=== PATIENT | male | born 1955 | race African-American/Black ===

== ENCOUNTER → 2018-10-23 08:37 | Outpatient (CLI) | payer MEDICAID, SELFPAY | PROVIDERS: PCP Family Medicine; Visit Provider Family Medicine | DX: I10 Essential (primary) hypertension (principal); E78.5 Hyperlipidemia, unspecified; E11.65 Type 2 diabetes mellitus with hyperglycemia; Z82.49 Family history of ischemic heart disease and other diseases of the circulatory system | CPT/HCPCS: 93017 ==

== ENCOUNTER → 2018-10-27 12:52 | Outpatient (CLI) | payer MEDICAID, SELFPAY | PROVIDERS: PCP Family Medicine; Visit Provider Family Medicine | DX: G47.30 Sleep apnea, unspecified (principal); G47.10 Hypersomnia, unspecified; I10 Essential (primary) hypertension; E66.9 Obesity, unspecified | CPT/HCPCS: 95806 ==

== ENCOUNTER 2018-12-02 03:56 | Observation (INO) ==
[2018-12-02 04:25] LABS: Basophils # 0.1 K/mm3 (0-0.2); Basophils % 0.4 % (0.1-2.0); Eosinophils # 0.1 K/mm3 (0.0-0.4); Eosinophils % 0.9 % (0.1-12.0); Hematocrit 24.7 % (42.0-52.0); Hemoglobin 8.3 g/dL (14.1-18.0); Lymphocytes # 1.9 K/mm3 (0.7-4.5); Lymphocytes % 18.5 % (10-50); Mean Corpuscular HGB Conc 33.9 g/dL (31.8-35.4); Mean Corpuscular Hemoglobin 34.2 pg (27.0-31.2); Mean Corpuscular Volume 100.9 fl (80-94); Monocytes # 0.5 K/mm3 (0.1-1.0); Monocytes % 4.9 % (1.7-9.3); Neutrophils # 7.8 K/mm3 (1.8-7.8); Neutrophils % 75.2 % (37.0-80.0); Platelet Count 430 K/mm3 (142-424); Red Blood Count 2.44 M/mm3 (4.60-6.20); Red Cell Distribution Width 13.3 % (11.5-17.5); White Blood Count 10.3 K/mm3 (4.8-10.8)
[2018-12-02 04:35] LABS: Alanine Aminotransferase 27 U/L (12-78); Albumin Level 3.6 gm/dL (3.4-5.0); Albumin/Globulin Ratio 0.7 (1.1-1.8); Alkaline Phosphatase 66 U/L (46-116); Anion Gap 17.7 mEq/L (5-15); Aspartate Amino Transferase 23 U/L (15-37); Bilirubin,Total 0.5 mg/dL (0.2-1.0); Blood Urea Nitrogen 48 mg/dL (7-18); Calcium 8.9 mg/dL (8.5-10.1); Carbon Dioxide 24 mmol/L (21.0-32.0); Chloride 95 mmol/L (98-107); Globulin 4.9 gm/dl (1.3-3.2); Glucose 296 mg/dL (74-106); Potassium 4.7 mmoL/L (3.5-5.1); Sodium 132 mmol/L (136-145); Total Protein,Serum 8.5 gm/dL (6.4-8.2)
--- NOTE | 2018-12-02 05:27 | Emergency Department Note ---
ED Disposition Clinical Impression: Acute dyspnea, Renal insufficiency, Obesity (BMI 30.0-34.9) Anemia Qualifiers: Anemia type: unspecified type Qualified Code(s): D64.9 - Anemia, unspecified Hypothyroidism Qualifiers: Hypothyroidism type: unspecified Qualified Code(s): E03.9 - Hypothyroidism, unspecified Diabetes Qualifiers: Diabetes mellitus type: type 2 Diabetes mellitus termite control service representative insulin use: unspecified termite control service representative insulin use status Diabetes mellitus complication status: with unspecified complications Qualified Code(s): E11.8 - Type 2 diabetes mellitus with unspecified complications Disposition: Admitted as Observation Condition on Discharge: Good Referrals: Provider,Referral, [Referring] - - Critical Care Critical Care Time: No Attestation: On 12/02/18, the high probability of a clinically significant, sudden or life threatening deterioration of the following system(s) required my full and direct attention, intervention and personal management. The time I documented below is in addition to time spent performing reported procedures but includes the following listed in this critical care notation. Medical Decision Making - Medical Records Medical records reviewed: Yes: I reviewed the patient's medical records. - Malcolm Inquiry Pt receiving controlled substance: No Vital Signs: 12/02/18 03:56 12/02/18 04:14 12/02/18 04:26 Temperature 98.0 F Temperature Source Oral Pulse Rate 106 H Pulse Rate [Right Brachial] 109 H 98 H Respiratory Rate 19 Blood Pressure [Right Arm] 132/60 129/61 Blood Pressure Mean [Right Arm] 84 83 02 Sat by Pulse Oximetry 89 L 93 L Oxygen Delivery Method Room Air Nasal Cannula Oxygen Flow Rate (LPM) 2 12/02/18 04:40 12/02/18 05:00 12/02/18 06:00 Temperature Temperature Source Pulse Rate Pulse Rate [Right Brachial] 100 H 98 H 100 H Respiratory Rate Blood Pressure [Right Arm] Blood Pressure Mean [Right Arm] 02 Sat by Pulse Oximetry 91 L 89 L 96 Oxygen Delivery Method Nasal Cannula Nasal Cannula Nasal Cannula Oxygen Flow Rate (LPM) 2 2 3 - Lab Data Lab results reviewed: Yes: I reviewed the patient's lab results. Lab Results 12/02/18 04:11: WBC 10.3, RBC 2.44 L, Hgb 8.3 L, Hct 24.7 L, MCV 100.9 H, MCH 34.2 H, MCHC 33.9, RDW 13.3, Plt Count 430 H, MPV 8.0, Neut % (Auto) 75.2, Lymph % (Auto) 18.5, [place] % (Auto) 4.9, Eos % (Auto) 0.9, Baso % (Auto) 0.4, Neut # (Auto) 7.8, Lymph # (Auto) 1.9, [place] # (Auto) 0.5, Eos # (Auto) 0.1, Baso # (Auto) 0.1 12/02/18 04:11: Sodium 132 L, Potassium 4.7, Chloride 95 L, Carbon Dioxide 24, Anion Gap 17.7 H, BUN 48 H, Creatinine 2.06 H, Estimated Creat Clear 55, Estimated GFR 33 L, Est GFR ( Amer) 40 L, Glucose 296 H, Calcium 8.9, Total Bilirubin 0.5, AST 23, ALT 27, Alkaline Phosphatase 66, Troponin I < 0.02, Total Protein 8.5 H, Albumin 3.6, Globulin 4.9 H, Albumin/Globulin Ratio 0.7 L 12/02/18 04:11: Lactate 2.2 H 12/02/18 04:11: Influenza Type A Ag Negative, Influenza Type B Ag Negative 12/02/18 04:11: B-Natriuretic Peptide 69 12/02/18 04:11: TSH 72.69 H, Thyroxine (T4) 1.8 L 12/02/18 05:53: Stool Occult Blood Negative Result diagrams: 12/02/18 04:11 12/02/18 04:11 Orders (Tests/Meds): ED MEDICATIONS Generic Name Dose Route Start Last Admin Trade Name Freq PRN Reason Stop Dose Admin Sodium Chloride 1,000 mls @ 999 mls/hr 12/02/18 04:00 12/02/18 04:19 Sod Chlor 0.9% 1000ml Bag IV 12/02/18 05:00 999 mls/hr .Q1H1M CARMENZA Administration Sodium Chloride 10 ml 12/02/18 04:00 Saline Flush 10ml Syringe IV 01/01/19 03:59 NEEDED PRN Maintain IV Site Discontinued Medications Generic Name Dose Route Start Last Admin Trade Name Freq PRN Reason Stop Dose Admin Albuterol/Ipratropium 3 ml 12/02/18 04:01 12/02/18 04:12 Duoneb 3ml Neb IH 12/02/18 04:02 3 ml ONCE ONE Administration Methylprednisolone Sodium Succinate 125 mg 12/02/18 04:00 12/02/18 04:19 Solu-Medrol 125mg/2ml Vial IV 12/02/18 04:01 125 mg ONCE ONE Administration ORDERS Category Date Time Status XR chest portable Stat Exams 12/02/18 04:00 Taken Occult Blood,Stool Stat Lab 12/02/18 05:53 Ordered Blood Culture Stat Micro 12/02/18 04:11 Received ECG Request by /Ignacia Stat Y 12/02/18 04:00 Ordered - Radiology Data #1 Image(s): Chest Image Reviewed: Yes I reviewed the patient's radiology image Preliminary Findings: Abnormal (cm/lt base) - ECG Data Tracing #1 Normal Sinus Rhythm: Yes Ischemic changes: non-specific ST-T wave changes ECG compared to prior tracings: there are no significant changes - Physician Consults Physician Consulted: tiara Reason -: Admission Resp/SOB HPI - General Chief Complaint: Shortness of Breath/Dyspnea Stated Complaint: chest pain, shortness of breath Time Seen by Provider: 12/02/18 04:20 Mode of Arrival: Ambulatory Source of Information: Patient, Medical Record Limitations: No Limitations Description of Symptoms (Recalled from ER Triage Doc. by RN): Shortness of breath that started approx 3 days ago, also c/o chest pain with inspiration. Saw PCP yesterday, was given some Rx's but states he didn't have time to fill t hem. - History of Present Illness pt with 3 day hx of sob and ant chest pain - no fever or prod cough and no melena - he saw pcp but no meds filled - MD Complaint: shortness of breath Onset (ago): day(s) Severity: moderate Associated symptoms: denies other symptoms Treatment prior to arrival: none - Related Data Home oxygen amount: none Home Medications Medication Instructions Recorded Confirmed Allopurinol [Allopurinol 100mg 100 mg PO DAILY 09/05/18 12/02/18 tablet] Amlodipine Besylate [Amlodipine 10 mg PO DAILY 09/05/18 12/02/18 10mg Tab] Lisinopril [Lisinopril 40mg Tablet] 40 mg PO DAILY 09/05/18 12/02/18 Omeprazole [Omeprazole 20mg 20 mg PO DAILY 09/05/18 12/02/18 Capsule] Atorvastatin Calcium [Atorvastatin 20 mg PO DAILY 12/02/18 12/02/18 20mg Tab] Metformin HCl 500 mg PO DAILY 12/02/18 12/02/18 Naproxen 500 mg PO BID 12/02/18 12/02/18 Previous Rx's Medication Instructions Recorded Indomethacin [Indocin] 50 mg RC TID PRN #40 supp.rect 09/05/18 Allergies Allergy/AdvReac Type Severity Reaction Status Date / Time No Known Allergies Allergy Verified 11/12/18 09:42 [facility] History - Hepatitis A Screen Drug use history?: No High risk sexual behaviors?: No History of sexually transmitted infection?: No Currently employed?: No Childcare worker?: No Do you have indoor plumbing?: Yes Do you have electricity?: Yes Attestation statement:: This patient has been screened for Hepatitis A risk factors. I have reviewed the patient's past medical history: Yes Medical History: Reports:: Diabetes Mellitus Type 2, Hyperlipidemia, Hypertension, Kidney Stones Denies:: Cancer, Diabetes Mellitus Type 1, Gastrointestinal Bleed, MRSA, Renal Disease, Ulcer Other Medical History: Reports: Arthritis, Other Other Surgeries: Yes: Other (kidney stones) Amputation: No - Social History Smoking Status: Current some day smoker Alcohol Intake: never Occupational Status: employed - Psychiatric History Expresses thoughts of harming self/others: None Suicide Plan Description: No Plan ROS Obtained: Yes All systems reviewed & no additional complaints - Constitutional Constitutional: Denies fever(s) - Eyes Eyes: Denies change in vision - ENT Ears, Nose, Mouth, and Throat: Denies sore throat - Cardiovascular Cardiovascular: Denies chest pain - Respiratory Respiratory: Yes cough, Yes dyspnea - Gastrointestinal Gastrointestingal: Denies: abdominal pain - Genitourinary Male Genitourinary: Denies hematuria - Musculoskeletal Musculoskeletal: Denies joint pain - Integumentary/Breasts Skin/Breast: Denies rash - Neurologic Neurologic: Denies seizure-like activity Physical Exam - General General appearance: alert, in no apparent distress - Head Head exam: normocephalic - Eye Eye exam: Present: PERRL, EOMI. Absent: scleral icterus - ENT ENT exam: Present: mucous membranes dry - Neck Neck exam: Present: trachea midline - Respiratory Respiratory exam: Present: other (dec bs bilat ). Absent: respiratory distress - Cardiovascular Cardiovascular exam: Present: regular rate, systolic murmur, +S4 - Abdominal Exam Abdominal exam: Present: soft - Rectal Exam Rectal exam: Present: normal rectal tone, heme (-) stool - Extremities Exam Extremities exam: Absent: calf tenderness - Neurological Exam Neurological exam: Present: alert, oriented X3, CN II-XII intact - Psychiatric Psychiatric exam: Present: normal affect - Skin Skin exam: Absent: rash
[2018-12-02 06:22] LABS: Thyroid Stimulating Hormone 72.69 uIU/ml (0.358-3.740)
--- NOTE | 2018-12-02 07:34 | Pharmacy Consult Notes ---
[facility] Pharmacy VTE Monitoring - Patient Demographics Admission date: 12/02/18 Report Date: 12/02/18 Time: 07:33 Allergies/Adverse Reactions: Patient Allergies No Known Allergies Allergy (Verified 11/12/18 09:42) Height: 1.78 m Weight: 104.326 kg Patient Problems: Current Active Problems Acute dyspnea (Acute) Renal insufficiency (Acute) Anemia (Acute) Hypothyroidism (Acute) Obesity (BMI 30.0-34.9) (Acute) Diabetes (Acute) - VTE Risk Labs: VTE Related Lab Results Hgb 8.3 g/dL (14.1-18.0) L 12/02/18 04:11 Hct 24.7 % (42.0-52.0) L 12/02/18 04:11 Plt Count 430 K/mm3 (142-424) H 12/02/18 04:11 BUN 48 mg/dL (7-18) H 12/02/18 04:11 Creatinine 2.06 mg/dL (0.70-1.30) H 12/02/18 04:11 Estimated Creat Clear 55 mL/min (50-200) 12/02/18 04:11 - Prophylaxis VTE Prophylaxis Ordered?: Yes Types of VTE Prophylaxis: TEDS Knee High Location of Applied Device: Bilateral Lower Extremeties - VTE Diagnosis Confirmed Treatment or plan recommended: Continue Current Treatment
--- NOTE | 2018-12-02 11:02 | Consult Report ---
History of Present Illness Consult date: 12/02/18 Requesting physician: Gualberto Rosario Consult reason: shortness of breath Chief complaint: Shortness of breath Additional Medical History:: 1. Diabetes mellitus 2. Tobacco use 3. Anemia, macrocytic 4. Renal insufficiency 5. Pericardial effusion with cardiac tamponade, 12/02/2018, by echocardiogram 6. Hypertension 7. Hyperlipidemia 8. Routine stress test 10/2018, exercised for 5-1/2 minutes without chest pain, ST segment changes or arrhythmias. Severe sleep apnea by sleep study 10/2018 with AHI of 49 and RDI of 51 noted. History of present illness: 63-year-old black male presented to the emergency department for increasing shortness of breath over the last 3 days patient did see his primary care doctor yesterday and was prescribed some medication but he had not gotten the medications filled. Echocardiogram was obtained during initial workup in the hospital with evidence of pericardial effusion and tamponade physiology. Cardiology consulted for evaluation and treatment. Blood pressure systolic stable at 120 bpm with varying intensity of systolic pressure. Creatinine noted to be 2.0 with hemoglobin of 8, macrocytic indices and hypothyroid with a TSH of 72. Chest x-ray shows a left-sided effusion/infiltrate. EKG shows sinus rhythm at 100 bpm with low voltage and PRWP anteriorly. [facility] History Medical History: Reports:: Diabetes Mellitus Type 2, Hyperlipidemia, Hypertension, Kidney Stones Denies:: Cancer, Diabetes Mellitus Type 1, Gastrointestinal Bleed, MRSA, Renal Disease, Ulcer Have you ever received a pneumonia vaccine?: No Have you received a flu vaccine this season?: Yes Other Medical History: Reports: Arthritis, Other Other Surgeries: Yes: Other (kidney stones) Amputation: No Fractures: No - *Social History Educational Level: Completed High School Smoking Status: Light tobacco smoker Tobacco Type: cigars Alcohol Intake: never Occupational Status: employed, retired Housing: apartment Household Members: significant other Travel in the last 8 weeks: None - Psychiatric History Expresses thoughts of harming self/others: None Suicide Plan Description: No Plan *Family Hx:: Asthma, Cancer, Diabetes, Hyperlipidemia, Hypertension, Stroke Meds Home Medications Medication Instructions Recorded Confirmed Type Allopurinol [Allopurinol 100mg 100 mg PO DAILY 09/05/18 12/02/18 History tablet] Amlodipine Besylate [Amlodipine 10 mg PO DAILY 09/05/18 12/02/18 History 10mg Tab] Lisinopril [Lisinopril 40mg Tablet] 40 mg PO DAILY 09/05/18 12/02/18 History Omeprazole [Omeprazole 20mg 20 mg PO DAILY 09/05/18 12/02/18 History Capsule] Atorvastatin Calcium [Atorvastatin 10 mg PO HS 12/02/18 12/02/18 History 10mg Tab] Dorzolamide HCl/Timolol Maleat 1 drop EYE-BOTH BID 12/02/18 12/02/18 History [Dorzolamide-Timolol Eye Drops] Metformin HCl 500 mg PO DAILY 12/02/18 12/02/18 History Allergies Allergy/AdvReac Type Severity Reaction Status Date / Time No Known Allergies Allergy Verified 11/12/18 09:42 Review of Systems - *Cardiovascular Reports chest pain, Reports shortness of breath, Reports shortness of breath with activity - *Respiratory Reports shortness of breath with activity - *Gastrointestinal Denies loose stools - *Genitourinary Denies blood in urine - *Neurologic Denies seizure-like activity Exam Vital signs and Labs for Last 24 Hours: Temp Pulse Resp BP Pulse Ox 98.2 F 91 H 17 117/74 90 L 12/02/18 08:28 12/02/18 08:28 12/02/18 08:28 12/02/18 08:28 12/02/18 09:21 Laboratory Results - last 24 hr 12/02/18 04:11: WBC 10.3, RBC 2.44 L, Hgb 8.3 L, Hct 24.7 L, MCV 100.9 H, MCH 34.2 H, MCHC 33.9, RDW 13.3, Plt Count 430 H, MPV 8.0, Neut % (Auto) 75.2, Lymph % (Auto) 18.5, [place] % (Auto) 4.9, Eos % (Auto) 0.9, Baso % (Auto) 0.4, Neut # (Auto) 7.8, Lymph # (Auto) 1.9, [place] # (Auto) 0.5, Eos # (Auto) 0.1, Baso # (Auto) 0.1 12/02/18 04:11: Sodium 132 L, Potassium 4.7, Chloride 95 L, Carbon Dioxide 24, Anion Gap 17.7 H, BUN 48 H, Creatinine 2.06 H, Estimated Creat Clear 55, Estimated GFR 33 L, Est GFR ( Amer) 40 L, Glucose 296 H, Calcium 8.9, Total Bilirubin 0.5, AST 23, ALT 27, Alkaline Phosphatase 66, Troponin I < 0.02, Total Protein 8.5 H, Albumin 3.6, Globulin 4.9 H, Albumin/Globulin Ratio 0.7 L 12/02/18 04:11: Lactate 2.2 H 12/02/18 04:11: Influenza Type A Ag Negative, Influenza Type B Ag Negative 12/02/18 04:11: B-Natriuretic Peptide 69 12/02/18 04:11: TSH 72.69 H, Thyroxine (T4) 1.8 L 12/02/18 05:53: Stool Occult Blood Negative 12/02/18 08:45: Lactate 1.7 12/02/18 08:45: Troponin I < 0.02 I & O for Last 24 hours: Intake & Output 11/29/18 11/30/18 12/01/18 12/02/18 11:59 11:59 11:59 11:59 Intake Total 1000 / 1000 Balance 1000 / 1000 Weight 238 lb 4 oz - *Routine Neck Exam Present: supple, JVD. Absent: carotid bruit - *Routine Respiratory Exam Present: accessory muscle use. Absent: rales, rhonchi, wheezes Comments: Conversational dyspnea noted with short sentences - *Routine Cardiovascular Exam Present: RRR. Absent: murmur, gallop, rubs Comments: Distant heart sounds - *Routine Abdominal Exam Present: distended. Absent: tenderness, guarding - *Routine Extremities Exam Absent: edema, calf tenderness - *Routine Neurological Exam Present: alert, oriented X3, moving all extremities Assessment and Plan (1) Pericardial effusion with cardiac tamponade Current visit: Yes Status: Acute Category: Medical Code(s): I31.3 - Pericardial effusion (noninflammatory); I31.4 - Cardiac tamponade (2) Acute dyspnea Current visit: Yes Status: Acute Category: Medical Code(s): R06.00 - Dyspnea, unspecified (3) Anemia Current visit: Yes Status: Acute Qualifiers: Anemia type: unspecified type Qualified Code(s): D64.9 - Anemia, unspecified Category: Medical Code(s): D64.9 - Anemia, unspecified (4) Hypothyroidism Current visit: Yes Status: Acute Qualifiers: Hypothyroidism type: unspecified Qualified Code(s): E03.9 - Hypothyroidism, unspecified Category: Medical Code(s): E03.9 - Hypothyroidism, unspecified (5) Obesity (BMI 30.0-34.9) Current visit: Yes Status: Acute Category: Medical Code(s): E66.9 - Obesity, unspecified (6) Renal insufficiency Current visit: Yes Status: Acute Category: Medical Code(s): N28.9 - Disorder of kidney and ureter, unspecified - Assessment and plan all Dx Assessment and Plan for all problems:: 1. Discussed pericardiocentesis procedure, risks and benefits versus transfer to the [facility] for pericardial window. It is felt that the patient's situation would warrant pericardiocentesis here and transfer to [facility] for further definitive treatment. Patient agrees to this approach. Further recommendations to follow.
--- NOTE | 2018-12-02 12:13 | H&P/Discharge Summary ---
General - General Admission date:: 12/02/18 Discharge date: 12/02/18 *Admission Date: 12/02/18 *Chief complaint: Shortness of breath *History of present illness: 63-year-old male with hypertension, diabetes, gout, obstructive sleep apnea presented to the emergency department early this morning with complaint of shortness of breath. Patient had been seen in the office 1 day prior with symptoms of approximately 4 days of fatigue with some mild dyspnea and nasal congestion. Workup in the office was unrevealing, except for hyperglycemia with blood sugar in the 260s and medication adjustments were made. Earlier this morning patient presented to the emergency department. In the emergency department he was more dyspneic with hypoxia on vital sign testing of 89%, mild tachycardia. Patient was also found to be newly anemic compared to previous labs from August. Decision was made to admit the patient for monitoring of his CBC and an echocardiogram was ordered for the patient. Chest x-ray showed a questionable infiltrate in the left base. Creatinine was elevated to 2 which was doubling of his last creatinine. [facility] History I have reviewed the patient's past medical history: Yes Medical History: Reports:: Diabetes Mellitus Type 2, Hyperlipidemia, Hypertension, Kidney Stones Denies:: Cancer, Diabetes Mellitus Type 1, Gastrointestinal Bleed, MRSA, Renal Disease, Ulcer Have you ever received a pneumonia vaccine?: No Have you received a flu vaccine this season?: Yes Other Medical History: Reports: Arthritis, Other Other Surgeries: Yes: Other (kidney stones) Amputation: No Fractures: No - *Social History Educational Level: Completed High School Smoking Status: Light tobacco smoker Tobacco Type: cigars Alcohol Intake: never Occupational Status: employed, retired Housing: apartment Household Members: significant other Travel in the last 8 weeks: None - Psychiatric History Expresses thoughts of harming self/others: None Suicide Plan Description: No Plan *Family Hx:: Asthma, Cancer, Diabetes, Hyperlipidemia, Hypertension, Stroke Review of Systems - Review of Systems Review of systems:: pertinent systems reviewed and negative unless documented below - Constitutional Reports lack of energy, Denies body ache(s), Denies chills, Denies daytime sleepiness, Denies excessive sweating, Denies night sweats, Denies weight gain, Denies weight loss - *Cardiovascular Reports shortness of breath, Denies chest pain, Denies generalized swelling, Denies leg swelling - *Respiratory Reports shortness of breath, Denies change in phlegm color, Denies chest congestion, Denies cough - *Gastrointestinal Denies abdominal pain, Denies belching, Denies bloating, Denies heartburn, Denies vomiting blood - *Genitourinary Denies difficulty urinating, Denies difficulty with ejaculations - *Musculoskeletal Denies abnormal walking, Denies joint pain - *Neurologic Denies seizure-like activity Exam Vital signs and Labs for Last 24 Hours: Temp Pulse Resp BP Pulse Ox 98.2 F 91 H 17 117/74 90 L 12/02/18 08:28 12/02/18 08:28 12/02/18 08:28 12/02/18 08:28 12/02/18 09:21 Laboratory Results - last 24 hr 12/02/18 04:11: WBC 10.3, RBC 2.44 L, Hgb 8.3 L, Hct 24.7 L, MCV 100.9 H, MCH 34.2 H, MCHC 33.9, RDW 13.3, Plt Count 430 H, MPV 8.0, Neut % (Auto) 75.2, Lymph % (Auto) 18.5, [place] % (Auto) 4.9, Eos % (Auto) 0.9, Baso % (Auto) 0.4, Neut # (Auto) 7.8, Lymph # (Auto) 1.9, [place] # (Auto) 0.5, Eos # (Auto) 0.1, Baso # (Auto) 0.1 12/02/18 04:11: Sodium 132 L, Potassium 4.7, Chloride 95 L, Carbon Dioxide 24, Anion Gap 17.7 H, BUN 48 H, Creatinine 2.06 H, Estimated Creat Clear 55, Estimated GFR 33 L, Est GFR ( Amer) 40 L, Glucose 296 H, Calcium 8.9, Total Bilirubin 0.5, AST 23, ALT 27, Alkaline Phosphatase 66, Troponin I < 0.02, Total Protein 8.5 H, Albumin 3.6, Globulin 4.9 H, Albumin/Globulin Ratio 0.7 L 12/02/18 04:11: Lactate 2.2 H 12/02/18 04:11: Influenza Type A Ag Negative, Influenza Type B Ag Negative 12/02/18 04:11: B-Natriuretic Peptide 69 12/02/18 04:11: TSH 72.69 H, Thyroxine (T4) 1.8 L 12/02/18 05:53: Stool Occult Blood Negative 12/02/18 08:45: Lactate 1.7 12/02/18 08:45: Troponin I < 0.02 I & O for Last 24 hours: Intake & Output 11/30/18 12/01/18 12/02/18 12/03/18 11:59 11:59 11:59 11:59 Intake Total 1000 / 1000 Balance 1000 / 1000 Weight 238 lb 4 oz Narrative: Patient shows mild increased work of breathing. He is not diaphoretic. Oropharynx is moist. Neck is without lymphadenopathy. Lungs have expiratory wheezes. Heart has a rapid rate and rhythm. Abdomen is soft and nontender. Neurologically there are no deficits. Hospital Course Hospital Course: Patient was admitted early on the morning of December 02. Soon after admission he underwent echocardiogram which was concerning for cardiac tamponade. Echo was stat read by cardiology service which confirmed [place]en[place] nod. Cardiology consult was placed. Dr. Pantoja evaluated the patient and patient was taken to [facility] where he underwent pericardiocentesis by Dr. Pantoja with aspiration of 800 mL's of bloody fluid from the pericardial space. Pigtail catheter was anchored. Dr. Pantoja arranged transfer through Dr. Joyce. Patient will be transferred to the Psych[facility]. Discharge condition is stable. Results Labs on day of discharge: Labs from last 24 hours 12/02/18 12/02/18 12/02/18 08:45 08:45 05:53 WBC RBC Hgb Hct MCV MCH MCHC RDW Plt Count MPV Neut % (Auto) Lymph % (Auto) [place] % (Auto) Eos % (Auto) Baso % (Auto) Neut # (Auto) Lymph # (Auto) [place] # (Auto) Eos # (Auto) Baso # (Auto) Sodium Potassium Chloride Carbon Dioxide Anion Gap BUN Creatinine Estimated Creat Clear Estimated GFR Est GFR ( Amer) Glucose Lactate 1.7 Calcium Total Bilirubin AST ALT Alkaline Phosphatase Troponin I < 0.02 B-Natriuretic Peptide Total Protein Albumin Globulin Albumin/Globulin Ratio TSH Thyroxine (T4) Stool Occult Blood Negative Influenza Type A Ag Influenza Type B Ag 12/02/18 12/02/18 12/02/18 04:11 04:11 04:11 WBC RBC Hgb Hct MCV MCH MCHC RDW Plt Count MPV Neut % (Auto) Lymph % (Auto) [place] % (Auto) Eos % (Auto) Baso % (Auto) Neut # (Auto) Lymph # (Auto) [place] # (Auto) Eos # (Auto) Baso # (Auto) Sodium Potassium Chloride Carbon Dioxide Anion Gap BUN Creatinine Estimated Creat Clear Estimated GFR Est GFR ( Amer) Glucose Lactate Calcium Total Bilirubin AST ALT Alkaline Phosphatase Troponin I B-Natriuretic Peptide 69 Total Protein Albumin Globulin Albumin/Globulin Ratio TSH 72.69 H Thyroxine (T4) 1.8 L Stool Occult Blood Influenza Type A Ag Negative Influenza Type B Ag Negative 12/02/18 12/02/18 12/02/18 04:11 04:11 04:11 WBC 10.3 RBC 2.44 L Hgb 8.3 L Hct 24.7 L MCV 100.9 H MCH 34.2 H MCHC 33.9 RDW 13.3 Plt Count 430 H MPV 8.0 Neut % (Auto) 75.2 Lymph % (Auto) 18.5 [place] % (Auto) 4.9 Eos % (Auto) 0.9 Baso % (Auto) 0.4 Neut # (Auto) 7.8 Lymph # (Auto) 1.9 [place] # (Auto) 0.5 Eos # (Auto) 0.1 Baso # (Auto) 0.1 Sodium 132 L Potassium 4.7 Chloride 95 L Carbon Dioxide 24 Anion Gap 17.7 H BUN 48 H Creatinine 2.06 H Estimated Creat Clear 55 Estimated GFR 33 L Est GFR ( Amer) 40 L Glucose 296 H Lactate 2.2 H Calcium 8.9 Total Bilirubin 0.5 AST 23 ALT 27 Alkaline Phosphatase 66 Troponin I < 0.02 B-Natriuretic Peptide Total Protein 8.5 H Albumin 3.6 Globulin 4.9 H Albumin/Globulin Ratio 0.7 L TSH Thyroxine (T4) Stool Occult Blood Influenza Type A Ag Influenza Type B Ag DS: Diagnosis - Discharge Diagnosis (1) Pericardial effusion with cardiac tamponade Status: Acute (2) Acute dyspnea Status: Acute (3) Anemia Status: Acute (4) Hypothyroidism Status: Acute (5) Obesity (BMI 30.0-34.9) Status: Acute (6) Renal insufficiency Status: Acute Discharge Medications - Medications for Discharge Home Medication List at Discharge: Continue Omeprazole [Omeprazole 20mg Capsule] 20 mg PO DAILY Allopurinol [Allopurinol 100mg tablet] 100 mg PO DAILY Lisinopril [Lisinopril 40mg Tablet] 40 mg PO DAILY Amlodipine Besylate [Amlodipine 10mg Tab] 10 mg PO DAILY Metformin HCl 500 mg PO DAILY Dorzolamide HCl/Timolol Maleat [Dorzolamide-Timolol Eye Drops] 1 drop EYE- BOTH BID Atorvastatin Calcium [Atorvastatin 10mg Tab] 10 mg PO HS Disposition Disposition: Xfer Short-Term Hosp
[2018-12-02 12:32] LABS: Appearance,Body Fld. Bloody; RBC,Body Fluid 562 cells/uL (< 10 X 10^3); TNC,Body Fluid 4187 cells/uL (< 1000)
[2018-12-02 13:01] LABS: Mononuclear WBCs,Body Fluid 64 %; Polynuclear WBC,Body Fluid 36 %
--- NOTE | 2018-12-02 20:43 | Cardiology Report ---
PROCEDURE: 2-D M-mode and color Doppler study INDICATIONS FOR THE TEST: Chest pain COPD Heart MurmurX Tobacco Smoking Palpitations Fatigue Syncope Edema HypertensionXDiabetes MellitusX Rheumatic Fever SOBXDOEXObesityXHyperlipidemiaX Family History HD Additional History PATIENT INFORMATION HEIGHT: 70 WEIGHT:238 GENDER: Male B/P:129/61 2-D/M-MODE INTERPRETATION: 2-D MEASUREMENTS OBSERVED VALUES IN CMS Right Ventricular Dimension (RVDd) 3.0 Interventricular Septum (Thickness)(IVsd) 1.2 Left Ventricular Internal Dimensions(LVIDd) 4.0 Left Ventricular Posterior Wall (Thickness)(LVPWd) 1.2 Aortic Root 3.7 Aortic Cusp Separation 2.1 Left Atrial Dimensions (LAD) 2.9 2D 1. Left atrium is mildly enlarged, left ventricle is normal size, mild concentric left ventricular hypertrophy, visually estimated ejection fraction 55% with no regional wall motion abnormality. 2. The right atrium and right ventricle are mildly enlarged with normal contractility. 3. The aortic valve is minimally thickened. 4. The mitral and tricuspid valve leaflets are minimally thickened. 5. The pulmonic valve is poorly present. 6. There is large size circumferential pericardial effusion noted. There is diastolic collapse of the right ventricle suggestive wall tamponade . DOPPLER INTERROGATION: Doppler interrogation of the aortic, mitral and tricuspid valvular presence of mild mitral and tricuspid regurgitation, there is a variation in the mitral inflow velocities suggestive of raised intrapericardial pressure. CONCLUSION: 1. Mildly enlarged left atrium, normal left ventricular size, mild concentric left ventricular hypertrophy, visually estimated ejection fraction 55% with no regional wall motion abnormality. 2. Large size circumferential pericardial effusion noted with tamponade,
--- NOTE | 2018-12-09 13:14 | Cardiology Report ---
DATE OF PROCEDURE:12/02/2018 11:37 AM PROCEDURES: 1. Pericardiocentesis INDICATION FOR TEST: 1. Cardiac Tamponade 2. Large pericardial effusion Informed consent was obtained prior to the procedure. COMPLICATIONS: None ESTIMATED BLOOD LOSS: Less than 10 ml. TECHNIQUE: The upper abdomen and thorax were sterilely prepped. 1% lidocaine was used to anesthetize the subxiphoid area. A large pericardial needle was guided under ultrasound guidance into the pericardial space. Once in the pericardial space a wire was advanced and the needle was removed. Place predilatation catheter was used to open the track going into to the pericardial space. The pericardial pigtail catheter was then advanced also under ultrasound guidance and placed in the pericardial space. Following this 800 cc of bloody aspirate was removed from the pericardial sac. Following removal silk was used to secure the pigtail catheter to the cutaneous access site. Patient tolerated the procedure well. At the end of the procedure he was transferred to the postop holding area in stable condition. IMPRESSION: 1. Successful therapeutic and diagnostic pericardiocentesis with successful extraction of 800 cc of bloody fluid from the pericardial space PLAN: 1. The patient requires transfer [facility] for additional workup and possible pericardial window to avoid recurrent effusions 2. Cytology and chemical analysis of the aspirate to help define etiology 3. Supportive care
== END 2018-12-02 16:38 | disposition short-term general hospital (02) ==
LOC: ER 03:56 → 2ND 03:56
PROVIDERS: ADMIT Family Medicine; ATTEND Family Medicine
CPT/HCPCS: 33010; 71010; 71045; 76930; 80053; 82272; 82962; 83605; 83880; 84436; 84443; 84484; 85025; 87040; 87070; 87077; 87116; 87186; 87205; 87206; 87275; 87276; 89051; 93005; 93306; 96365; 96375; 99152; 99153; 99285; C1725; G0328; G0378; J1644

== ENCOUNTER → 2019-01-13 12:39 | Outpatient (CLI) | payer MEDICAID, SELFPAY ==
--- NOTE | 2019-01-13 | CA_ITS ---
PROCEDURE: 2-D M-mode and color Doppler study INDICATIONS FOR THE TEST: Chest pain COPD Heart Murmur Tobacco Smoking Palpitations Fatigue Syncope Edema Hypertension+Diabetes Mellitus+ Rheumatic Fever SOB PARKER Obesity+Hyperlipidemia+ Family History HD Additional HistRETINAL ARTERY OCCLUSION, POST TAMPONADE, POST PERICARDIOCENTESIS PATIENT INFORMATION HEIGHT: 70 WEIGHT:220 GENDER: Male B/P:127/74 2-D/M-MODE INTERPRETATION: 2-D MEASUREMENTS OBSERVED VALUES IN CMS Right Ventricular Dimension (RVDd) 2.2 Interventricular Septum (Thickness)(IVsd) 1.6 Left Ventricular Internal Dimensions(LVIDd) 4.0 Left Ventricular Posterior Wall (Thickness)(LVPWd) 1.3 Aortic Root 3.5 Aortic Cusp Separation 1.4 Left Atrial Dimensions (LAD) 3.7 2D 1. Left atrium is mildly enlarged, left ventricle is normal size, mild concentric left ventricular hypertrophy, visually estimated ejection fraction of 55-60% with no regional wall motion abnormality. 2. The right atrium and right ventricle are normal size and contractility. 3. The aortic valve is thickened and calcified leaflet continue to display mobility. 4. The mitral and tricuspid valve leaflets are minimally thickened. 5. The pulmonic valve is poorly present. 6. No significant pericardial effusion noted. DOPPLER INTERROGATION: Doppler interrogation of the aortic, mitral and tricuspid valvular presence of mild mitral and tricuspid regurgitation, tricuspid regurgitation jet velocity is inadequate for calculation of the right ventricular systolic pressure, grade 1 diastolic dysfunction seen with tissue Doppler evidence of raised left atrial pressure. Agitated saline contrast study fails to identify intracardiac shunt. CONCLUSION: 1. Mildly enlarged left atrium, normal left ventricular size, mild concentric left ventricular hypertrophy, visually estimated ejection fraction 55-60% with no regional wall motion abnormality, grade 1 diastolic dysfunction seen with tissue Doppler evidence of raised left atrial pressure. 2. Mild mitral and tricuspid regurgitation 3. Agitated saline contrast study fails to identify intracardiac shunt
--- NOTE | 2019-01-13 | CI_ITS ---
Cerebrovascular Exam IMPRESSIONS 1. The bilateral vertebral arteries are patent with normal antegrade flow. 2. Study suggests less than 20% stenosis involving the right internal carotid artery and the left internal carotid artery. History: Coronary artery disease. Branch retinal artery occlusion Risk factors: Hypertension. Hyperlipidemia. Carotid duplex study. Complete study and Doppler flow study including spectral analysis, color and keyes scale imaging. Height: Height: 177.8cm. Height: 70in. Weight: Weight: 97.5kg. Weight: 214.6lb. Body mass index: BMI: 30.8kg/m^2. Body surface area: BSA: 2.22m^2. Tables: Arterial flow: + +--------+--------+ Location V sys V ed + +--------+--------+ Right CCA - proximal 70.7cm/s 18.1cm/s + +--------+--------+ Right CCA - distal 62.9cm/s 12.6cm/s + +--------+--------+ Right ECA 63.6cm/s -------- + +--------+--------+ Right ICA - proximal 67.6cm/s 29.1cm/s + +--------+--------+ Right ICA - mid 88cm/s 33cm/s + +--------+--------+ Right ICA - distal 85.6cm/s 36.1cm/s + +--------+--------+ Right vertebral 67.6cm/s -------- + +--------+--------+ Left CCA - proximal 105cm/s 23.6cm/s + +--------+--------+ Left CCA - distal 66.8cm/s 17.3cm/s + +--------+--------+ Left ECA 54.2cm/s -------- + +--------+--------+ Left ICA - proximal 75.4cm/s 26.7cm/s + +--------+--------+ Left ICA - mid 84.9cm/s 27.5cm/s + +--------+--------+ Left ICA - distal 83.3cm/s 36.1cm/s + +--------+--------+ Left vertebral 52.6cm/s -------- + +--------+--------+ Velocity ratios: + + + + + + Right, V sys Right, V ed Left, V sys Left, V ed + + + + + + Max ICA/dist CCA 1.4 2.87 1.27 2.09 + + + + + + (Report amended ) Electronically signed by: Ayush Ozuna [id number]
== END ==
PROVIDERS: PCP Family Medicine; Visit Provider Ophthalmology
DX: H34.212 Partial retinal artery occlusion, left eye (principal); H34.211 Partial retinal artery occlusion, right eye
CPT/HCPCS: 93306; 93880

== ENCOUNTER 2019-04-23 09:23 | Day surgery (SDC) | payer MEDICAID, SELFPAY ==
[2019-04-22 12:40] VITALS: BMI 30.8
[2019-04-23] VITALS (7 sets, daily range): BP systolic 71–120; BP diastolic 47–78; PULSE 65–80; RESP 18; TEMP 36.2–36.3; O2SAT 92–99
[2019-04-23 10:13] LABS: POC Glucose,Bedside 126 (70-110)
--- NOTE | 2019-04-23 11:04 | HMH.ANESCL ---
[facility] Anesthesia Checklist - Patient Identification Patient Identification: Arm Band, Verbal (Name & ) - Structural Data Admitted From: Home Planned Operative Procedure/s: colon Consent for Planned Operative Procedure(s) Verified: Yes Verified Documents: History and Physical - NPO Status Verified Time NPO: 00:00 - Additional verifications Patient : No Anesthesia Reactions: No Hx Blood Transfusions: No Blood Transfusion Reaction: No Cephalosporin Allergy: No Previous Colonoscopy: Yes - Cardiovascular Assessment Heart Sounds: S1 & S2 Pulse Strength: Baseline Pulse Rhythm: Regular Peripheral Edema: No - Airway Assessment C-Spine Mobility Assessed: Yes TMJ Mobility Assessed: Yes Dentition: Good Dentition - Neurological Assessment Level of Consciousness: Awake, Alert, Appropriate Hx Seizures: No Numbness or tingling in extremities: No - Anesthesia Plan Anesthesia Risk discussed: Yes Anesthesia Plan: Verified ASA Class: III Anesthesia Type: MAC [facility] History I have reviewed the patient's past medical history: Yes Medical History: Reports:: Congenital Heart Disease, Diabetes Mellitus Type 2, Hyperlipidemia, Hypertension, Lung Disease (eduardo/cpap), Kidney Stones Denies:: Cancer, Diabetes Mellitus Type 1, Gastrointestinal Bleed, Internal Pacemaker, MRSA, Renal Disease, Seizures, Ulcer *Have you ever received a pneumonia vaccine?: Yes *Have you received a flu vaccine this season?: No Other Medical History: Reports: Arthritis, Other Other Surgeries: Yes: Other. No: Pacemaker Amputation: No Fractures: No - *Social History Smoking Status: Former smoker Tobacco Type: cigars Alcohol Intake: never *Occupational Status:: retired Housing: apartment Household Members: significant other *Travel in the last 8 weeks: None Family Hx:: Asthma, Cancer, Diabetes, Hyperlipidemia, Hypertension, Stroke
--- NOTE | 2019-04-23 12:07 | HMH.SCOPE ---
- Procedure: Date: 04/23/19 Procedure Performed:: Colonoscopy with polypectomy Indications:: Screening Performing Provider:: Gabriel Corrales MD Referring Provider:: . Sedation:: Monitored anesthesia care Procedure:: After informed consent was obtained the patient was taken to the endoscopy suite. Sedation ensued after the patient was transferred to the left lateral decubitus position. Pulse, blood pressure, and oxygen saturation were monitored throughout the procedure. Digital rectal exam revealed no significant abnormality. The colonoscope was placed in position. The entire colon was evaluated. The colonoscope was carefully removed and the patient was transferred to recovery in stable condition. Please see findings and specimens below for detail. Findings:: Bowel preparation moderate Severe spasticity and lack of relaxation Moderate tortuosity Scattered diverticulosis Lobulated sessile distal transverse colon polyp Specimens:: Lobulated sessile distal transverse colon polyp Recommendations:: Timing of repeat colonoscopy is pending pathology but will likely be between 1-2 years secondary to size/nature of polyp, moderate bowel preparation, spasticity/lack of relaxation, and tortuosity. If repeat colonoscopy reveals no significant abnormality timing of future evaluations will likely be extended. Complications:: No immediate Estimated blood obtained (mL): 1
== END 2019-04-23 13:01 | disposition home or self-care (01) ==
LOC: OUTP 09:26
PROVIDERS: PCP Family Medicine; Visit Provider Surgery
PROC: 0DJD8ZZ Inspection of Lower Intestinal Tract, Via Natural or Artificial Opening Endoscopic (ICD-10-PCS; CPT 45380; principal; 2019-04-23 10:30)
DX: Z12.11 Encounter for screening for malignant neoplasm of colon (principal); K58.9 Irritable bowel syndrome, unspecified; K56.2 Volvulus; K57.30 Diverticulosis of large intestine without perforation or abscess without bleeding; K63.5 Polyp of colon
CPT/HCPCS: 45380; 82962; J2704

== ENCOUNTER → 2020-01-06 13:45 | Outpatient (CLI) | payer OTHER, SELFPAY ==
--- NOTE | 2020-01-06 | CA_ITS ---
APPROVED REPORT EXAM: Comprehensive 2D, Doppler, and color-flow Echocardiogram Geriatric Assistant: Leola Rojas CRT Ht: 5 ft 10 in Wt: 215lbs BSA: 2.15 BP: 125/69 mmHg Indications: Diabetes, Hyperlipidemia, Hypertension/HDD, SMOKER 2D Dimensions LVOT 2.11 cm (M/F) 1.5-2.5 M-Mode Dimensions RVDd 2.39 cm (0.9-2.6) LVDd 4.25 cm (3.5-5.7) LVDs 3.02 cm (3.5-5.7) IVSd 1.86 cm (0.6-1.1) PWd 0.78 cm (0.6-1.1) EF (Teich) 55.90% FS 28.90% EDV (Teich) 80.80 mL ESV (Teich) 35.60 mL LV Diastology E/A Ratio 1.26 Mitral Valve MV A Velocity 64.00 (40-130 cm/s) Left Ventricle Left atrium is mildly enlarged, left ventricle is normal size, visually estimated ejection fraction 50% with no regional wall motion abnormality, diastolic parameters are inconclusive. Right Ventricle Right atrium and right ventricle are normal size and contractility. Aortic Valve Aortic valve is minimally thickened and fibrosed, there is no aortic stenosis or aortic insufficiency. Mitral Valve Mitral valve is grossly normal, there is mild mitral regurgitation. Tricuspid Valve Tricuspid valve is grossly normal, there is mild tricuspid regurgitation. Pulmonic Valve Pulmonic valve is poorly visualized. Great Vessels Aortic root is normal size. Pericardium No significant pericardial effusion noted. Conclusion 1. Mildly enlarged left atrium, normal left ventricular size, mild concentric left ventricular hypertrophy, visually estimated ejection fraction 50% with no regional wall motion abnormality, diastolic parameters are inconclusive. 2. Thickened and calcified aortic valve without aortic stenosis aortic insufficiency. 3. Mild mitral and tricuspid regurgitation. 4. No significant pericardial effusion noted. Electronically signed by : Jourdan Shafer, 01/07/2020 16:25:55
== END ==
PROVIDERS: PCP Family Medicine; Visit Provider Family Medicine
DX: R07.9 Chest pain, unspecified (principal); R06.02 Shortness of breath; Z86.79 Personal history of other diseases of the circulatory system
CPT/HCPCS: 93306

== ENCOUNTER 2020-01-26 08:00 | Outpatient (RCR) | payer OTHER, SELFPAY ==
--- NOTE | 2020-01-06 15:56 | HMH.PTOPEV ---
PT Outpatient Evaluation Rehab PT Outpatient Evaluation Start: 01/06/20 15:14 Freq: Status: Active Protocol: Document 01/06/20 15:44 NORA (Rec: 01/06/20 15:56 NORA [id number]) Electronically Signed By Justin Cornelius, PT 01/06/20 15:44 Outpatient Therapy Subjective History Subjective History Patient is a 64 year old male presenting to outpatient PT with reports of chronic low back pain of insidious onset starting 5-6 years ago. No reports of radicular symptoms. No recent imaging to report. No previous Rx for low back pain to report. Comorbidites include B cataracts, HTN, diabetes, gout and hx of pericardial centesis. Chief Complaint Pain,Stiff Symptom Type Ache Symptoms Relieved By Rest/Positioning Symptoms Aggravated By Standing,Physical Activity, Walking,Lifting Prior Functional Limitations None Current Functional Limitations Lifting,Housework,Standing, Recreation Activity,Walking Symptom Description Intermittent Level of pain today (0-10) 1 Pain scale - at its best (0-10) 0 Pain scale - at its worst (0-10) 9 Lumbopelvic Eval Posture Thoracic Spine Posture Standing Position Increased Kyphosis Lumbar Spine Posture Standing Position Decreased Lordosis Assistive device Assistive Devices None / NA Palapation tenderness bilateral lumbar spinal tenderness Yes: 2/4 paraspinal tenderness Yes: 2/4 buttock tenderness Yes: 2/4 Accessory Movement L4 bilateral L5 bilateral S1 bilateral Range of Motion Lumbar Spine Active Flexion Range of 62 Motion (degrees) Lumbar Spine Active Extension Range of 15 Motion (degrees) Left Lumbar Spine Lateral Flexion Active 15 Range of Motion (degrees) Right Lumbar Spine Lateral Flexion 22 Active Range of Motion (degrees) Manual Muscle Test Bilateral Knee Extension Strength Grade 5 Normal Knee Flexion Strength Grade 5 Normal Hip Flexion Strength Grade 5 Normal Extensor Hallucis Longus Strength Grade 5 Normal Ankle Dorsiflexion Strength Grade 5 Normal Gastronemius/Soleus Strength Grade 5 Normal DTR Rt Patellar 1+ Lt Patellar 1+ Rt Gastroc/Soleus 1+ Lt Gastroc/Soleus 1+ Special Tests Lumbar Spine Screen Pos
== END 2020-01-26 08:05 | disposition home or self-care (01) ==
LOC: PT 08:00
PROVIDERS: PCP Family Medicine; Visit Provider Family Medicine
DX: M54.5 Low back pain (principal)
CPT/HCPCS: 97010; 97014; 97110; 97163; G0283

== ENCOUNTER 2020-08-20 13:43 | Emergency (ER) | payer OTHER, SELFPAY ==
[2020-08-20 13:43] VITALS: BP 134/77; PULSE 95; RESP 16; TEMP 36.6; O2SAT 98; BMI 33.0
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
[2020-08-20 15:53] VITALS: BP 116/68; PULSE 62; RESP 17; TEMP 36.6; O2SAT 97
== END 2020-08-20 15:59 | disposition home or self-care (01) ==
PROVIDERS: Emergency Provider Emergency Medicine; PCP Family Medicine
DX: S01.01XA Laceration without foreign body of scalp, initial encounter (principal); V43.52XA Car driver injured in collision with other type car in traffic accident, initial encounter; Y92.488 Other paved roadways as the place of occurrence of the external cause
CPT/HCPCS: 70450; 72125; 73030; 96374; 96375; 99282

== ENCOUNTER 2020-08-24 10:25 | Emergency (ER) | payer OTHER, SELFPAY ==
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
[2020-08-24 10:36] VITALS: BP 118/77; PULSE 88; RESP 17; TEMP 36.7; O2SAT 100; BMI 33.0
[2020-08-24 11:00] VITALS: BP 129/77; PULSE 83; RESP 17; TEMP 36.7; O2SAT 99
== END 2020-08-24 11:02 | disposition home or self-care (01) ==
PROVIDERS: Emergency Provider Emergency Medicine; PCP Family Medicine
DX: M25.511 Pain in right shoulder (principal); V89.1XXA Person injured in unspecified nonmotor-vehicle accident, nontraffic, initial encounter; E11.9 Type 2 diabetes mellitus without complications; E78.5 Hyperlipidemia, unspecified; E03.9 Hypothyroidism, unspecified; Z87.442 Personal history of urinary calculi; Z79.899 Other long term (current) drug therapy
CPT/HCPCS: 99281

== ENCOUNTER → 2021-03-30 13:38 | Outpatient (CLI) | payer MEDICARE, OTHER, SELFPAY | PROVIDERS: PCP Family Medicine; Visit Provider Nurse Practitioner Family | DX: Z20.822 Contact with and (suspected) exposure to COVID-19 (principal) | CPT/HCPCS: U0003 ==

== ENCOUNTER 2022-03-08 03:48 | Emergency (ER) | payer MEDICARE, OTHER, SELFPAY ==
[2022-03-08 03:50] VITALS: BP 144/78; PULSE 91; RESP 18; TEMP 36.6; O2SAT 98; BMI 33.0
--- NOTE | 2022-03-08 04:15 | XR_ITS ---
PROCEDURE INFORMATION: Exam: XR Chest Exam date and time: 03/08/2022 4:16 AM Age: 67 years old Clinical indication: Other: Congestion TECHNIQUE: Imaging protocol: XR of the chest. Views: 2 views. COMPARISON: CR CXR2V XR chest 2V 12/16/2018 12:41 AM FINDINGS: Lungs: Unremarkable. No consolidation. Pleural spaces: Unremarkable. No pleural effusion. No pneumothorax. Heart/Mediastinum: Unremarkable. No cardiomegaly. Bones/joints: Unremarkable. IMPRESSION: No acute findings.
[2022-03-08 04:25] LABS: Coronavirus 19, PCR Not Detected (NotDetected); Influenza A, PCR Not Detected (NotDetected); Influenza B, PCR Not Detected (NotDetected)
[2022-03-08 04:37] LABS: Alanine Aminotransferase 55 U/L (12-78); Albumin Level 4.9 g/dl (3.5-5.0); Albumin/Globulin Ratio 1.3 (1.1-1.8); Alkaline Phosphatase 56 U/L (38-126); Anion Gap 11.8 mEq/L (5-15); Aspartate Amino Transferase 96 U/L (17-59); Bilirubin,Total 0.6 mg/dl (0.2-1.3); Blood Urea Nitrogen 13 mg/dl (9-20); Calcium 9.7 mg/dl (8.4-10.2); Carbon Dioxide 33 mmol/L (22.0-30.0); Chloride 100 mmol/L (98-107); Creatinine Clearance Estimated 71 mL/min (50-200); Estimated Glomerular Filt Rate 47 ml/min (>60); GFR (African American) 57 ML/MIN (>60); Globulin 3.7 g/dL (1.3-3.2); Glucose 168 mg/dl (74-100); Potassium 3.8 mmoL/L (3.5-5.1); Sodium 141 mmol/L (136-145); Total Protein,Serum 8.6 g/dl (6.3-8.2)
--- NOTE | 2022-03-08 04:41 | PC.NURSE ---
upon medication administration there were 2 bugs found crawling on the bed with the pt. after collection of the bugs they were sent to lab for confirmation that they were bed bugs. pt was aware that he had bedbugs and was compliant in bagging clothes for the remainder of his stay
[2022-03-08 04:42] LABS: C-Reactive Protein 20.6 mg/L (0-4)
[2022-03-08 04:54] LABS: Erythrocyte Sedimentation Rate 36 mm/hr (0-20)
[2022-03-08 04:56] LABS: Procalcitonin 0.086 ng/mL (0.0-2.0)
[2022-03-08 05:50] LABS: Hematocrit 31.1 % (42.0-52.0); Hemoglobin 10.2 g/dL (14.1-18.0); Mean Corpuscular HGB Conc 32.8 g/dL (31.8-35.4); Mean Corpuscular Hemoglobin 33.2 pg (27.0-31.2); Mean Corpuscular Volume 101.3 fl (80-94); Red Blood Count 3.07 M/mm3 (4.60-6.20)
[2022-03-08 05:51] LABS: Basophils # 0.1 K/mm3 (0-0.2); Eosinophils # 1.2 K/mm3 (0.0-0.4); Eosinophils % 13.1 % (0.1-12.0); Lymphocytes # 3.1 K/mm3 (0.7-4.5); Lymphocytes % 34.4 % (10-50); Mean Platelet Volume 10.9 fl (7.4-10.4); Monocytes # 0.6 K/mm3 (0.1-1.0); Monocytes % 6.6 % (1.7-9.3); Neutrophils % 44.7 % (37.0-80.0); Platelet Count 288 K/mm3 (142-424); Red Cell Distribution Width 12.5 % (11.5-17.5)
--- NOTE | 2022-03-08 06:02 | HMH.EDURI ---
ED Disposition Clinical Impression: Bronchitis Disposition: Home, Self-Care Condition on Discharge: Good Instructions: DI for Acute Bronchitis Additional Instructions: fluids and see pcp for follow up Prescriptions: Azithromycin [Zithromax 250mg tab] 250 mg PO DIRECTED #6 tab Transmission Status: Pending to [facility] #[id number] Referrals: Martine Gimenez MD [Primary Care Provider] - - Critical Care Critical Care Time: No Attestation: On 03/08/22, the high probability of a clinically significant, sudden or life threatening deterioration of the following system(s) required my full and direct attention, intervention and personal management. The time I documented below is in addition to time spent performing reported procedures but includes the following listed in this critical care notation. Medical Decision Making - Medical Records Medical records reviewed: Yes: I reviewed the patient's medical records. - Malcolm Inquiry Pt receiving controlled substance: No Vital Signs: 03/08/22 03:50 Temperature 97.9 F Temperature Source Oral Pulse Rate [Left] 91 H Respiratory Rate 18 Blood Pressure [Right Arm] 144/78 H Blood Pressure Mean [Right Arm] 100 02 Sat by Pulse Oximetry 98 Oxygen Delivery Method Room Air - Lab Data Lab results reviewed: Yes: I reviewed the patient's lab results. Lab Results 03/08/22 04:14: WBC 9.0, RBC 3.07 L, Hgb 10.2 L, Hct 31.1 L, MCV 101.3 H, MCH 33.2 H, MCHC 32.8, RDW 12.5, Plt Count 288, MPV 10.9 H, Neut % (Auto) 44.7, Lymph % (Auto) 34.4, [place] % (Auto) 6.6, Eos % (Auto) 13.1 H, Baso % (Auto) 1.0, Neut # (Auto) 4.0, Lymph # (Auto) 3.1, [place] # (Auto) 0.6, Eos # (Auto) 1.2 H, Baso # (Auto) 0.1, ESR 36 H 03/08/22 04:14: Sodium 141, Potassium 3.8, Chloride 100, Carbon Dioxide 33 H, Anion Gap 11.8, BUN 13, Creatinine 1.50 H, Estimated Creat Clear 71, Estimated GFR 47 L, Est GFR ( Amer) 57 L, Glucose 168 H, Calcium 9.7, Total Bilirubin 0.6, AST 96 H, ALT 55, Alkaline Phosphatase 56, C-Reactive Protein 20.6 H, Total Protein 8.6 H, Albumin 4.9, Globulin 3.7 H, Albumin/Globulin Ratio 1.3 03/08/22 04:14: Procalcitonin 0.086 03/08/22 04:14: SARS-CoV-2 (PCR) Not detected, Influenza A Untype (PCR) Not detected, Influenza Type B (PCR) Not detected Result diagrams: 03/08/22 04:14 03/08/22 04:14 Orders (Tests/Meds): ED MEDICATIONS Generic Name Dose Route Start Last Admin Trade Name Freq PRN Reason Stop Dose Admin Lactated Ringer's 1,000 mls @ 999 mls/hr 03/08/22 04:30 03/08/22 04:24 Lactated Ringer's 1000 Ml Bag IV 03/08/22 05:30 999 mls/hr .Q1H1M CARMENZA Administration Discontinued Medications Generic Name Dose Route Start Last Admin Trade Name Freq PRN Reason Stop Dose Admin Ketorolac Tromethamine 30 mg 03/08/22 04:16 03/08/22 04:24 Ketorolac 30mg/Ml Vial IV 03/08/22 04:17 30 mg ONCE ONE Administration Methylprednisolone Sodium Succinate 125 mg 03/08/22 04:16 03/08/22 04:24 Methylprednisolone Sod Succ 125mg Vial IV 03/08/22 04:17 125 mg ONCE ONE Administration - Radiology Data #1 Image(s): Chest Image Reviewed: Yes I have reviewed radiologist's interpretation Preliminary Findings: Normal/NAD Medical Decision Narrative: pt with cough and stable exam and labs and will treat as atypicsal infection URI/Sore Throat HPI - General Chief Complaint: Upper Respiratory Infection Stated Complaint: sore throat,cough,feels bad all over Time Seen by Provider: 03/08/22 04:15 Mode of Arrival: Ambulatory Source of Information: Patient, Medical Record Limitations: No Limitations Description of Symptoms (Recalled from ER Triage Doc. by RN): pt states he has a cough and runny nose for about 5 days and that he has taken tylenol day and it helps til it wears off. - History of Present Illness HPI Narrative: uri sx with cough over the last 5 days MD Complaint: cough, nasal congestion Onset (ago): day(s) Severity: moderate
[2022-03-08 06:13] VITALS: BP 132/82; PULSE 85; RESP 18; TEMP 36.6; O2SAT 98
== END 2022-03-08 06:20 | disposition home or self-care (01) ==
PROVIDERS: Emergency Provider Emergency Medicine; PCP Family Medicine
DX: J20.9 Acute bronchitis, unspecified (principal); J06.9 Acute upper respiratory infection, unspecified; I10 Essential (primary) hypertension; E78.5 Hyperlipidemia, unspecified; E11.9 Type 2 diabetes mellitus without complications; Q24.9 Congenital malformation of heart, unspecified; J98.4 Other disorders of lung; M19.90 Unspecified osteoarthritis, unspecified site; Z20.822 Contact with and (suspected) exposure to COVID-19; Z79.1 Long term (current) use of non-steroidal anti-inflammatories (NSAID); Z79.4 Long term (current) use of insulin; Z79.899 Other long term (current) drug therapy; Z87.891 Personal history of nicotine dependence; Z82.49 Family history of ischemic heart disease and other diseases of the circulatory system; Z80.9 Family history of malignant neoplasm, unspecified; Z83.3 Family history of diabetes mellitus; Z82.5 Family history of asthma and other chronic lower respiratory diseases; Z83.438 Family history of other disorder of lipoprotein metabolism and other lipidemia
CPT/HCPCS: 71046; 80053; 84145; 85025; 85651; 86140; 96361; 96374; 96375; 99285; C9803; U0003; U0005

== ENCOUNTER 2022-07-31 14:40 | Emergency (ER) | payer MEDICARE, OTHER, SELFPAY ==
[2022-07-31 14:41] VITALS: BP 110/74; PULSE 108; RESP 18; TEMP 38.1; O2SAT 97; BMI 32.1
--- NOTE | 2022-07-31 14:54 | EXP.UTC ---
Discharge Plan Disposition Patient Disposition: Home, Self-Care Condition: Good Prescriptions Prescriptions: New benzonatate [benzonatate] 100 mg capsule 100 mg PO TIDP PRN (Reason: Cough) Qty: 30 0RF amoxicillin-pot clavulanate 875-125 mg Tablet 1 tab PO Q12H Qty: 20 0RF No Action allopurinol 100 MG tablet 100 mg PO DAILY amlodipine 10 MG tablet 10 mg PO DAILY lisinopril 40 MG tablet 40 mg PO DAILY atorvastatin 10 MG tablet 10 mg PO HS dorzolamide-timolol 10 ML drops 1 drp EYE-BOTH BID Label Comments: instill 1 drop into both eyes twice a day insulin glargine 100 UNIT/ML solution 15 unit SQ DAILY levothyroxine 100 MCG tablet 100 mg PO DAILY pantoprazole 40 MG tablet,delayed release (DR/EC) 40 mg PO DAILY insulin lispro 100 UNIT/ML cartridge 5 unit SQ TID lidocaine 1 EACH adhesive patch,medicated 1 each TP Q24H PRN (Reason: As Needed For Fever Or Pain) 7 Days Qty: 7 0RF cyclobenzaprine 5 MG tablet 5 mg PO TIDP PRN (Reason: As Needed For Fever Or Pain) 7 Days Qty: 12 0RF azithromycin 250 MG tablet 250 mg PO DIRECTED Qty: 6 0RF Rx Instructions: Take two (2) tablets on day #1, then one (1) tablet day #2 thru #5 ketorolac 10 MG tablet 10 mg PO Q6H 5 Days Qty: 20 0RF cyclobenzaprine 5 MG tablet 5 mg PO Q8HP PRN (Reason: pain/spasm) Qty: 30 0RF Referrals Follow up/Referrals: Martine Gimenez MD [Primary Care Provider] - See instructions Activity Restrictions/Add. Instructions Additional Instructions/Restrictions: Drink plenty of fluids. Take tylenol or ibuprofen for pain or fever. Take the medications as directed. Follow up with your regular doctor. GO TO THE ER FOR ANY WORSENING SYMPTOMS Throw your tooth brush away and get a new one. Clinical Impressions Clinical Impression: Strep throat Instructions Patient Instructions: Strep Throat, DI for Strep Throat Discharge ED Provider: Duc Villalobos [facility] General Stated complaint: sore throat, runny nose, cough Time Seen by Provider: 07/31/22 14:54 History of Present Illness Provider Complaint: He states that he has felt bad for the past 2 days. He has a sore throat, malaise, low grade fever up to 100.6. He denies any known exposure to covid-19 or other diseases. Related Data Home Medications Medication Instructions Recorded Confirmed allopurinol 100 mg tablet 100 mg PO DAILY gout 09/05/18 08/20/20 amlodipine 10 mg tablet 10 mg PO DAILY BLOOD PRESSURE 09/05/18 08/20/20 lisinopril 40 mg tablet 40 mg PO DAILY BLOOD PRESSURE 09/05/18 08/20/20 atorvastatin 10 mg tablet 10 mg PO HS Cholesterol 12/02/18 08/20/20 dorzolamide 22.3 mg-timolol 6.8 1 drp EYE-BOTH BID Glaucoma 12/02/18 08/20/20 mg/mL eye drops insulin glargine 100 unit/mL 15 unit SQ DAILY Diabetes 12/16/18 08/20/20 subcutaneous solution insulin lispro 100 unit/mL 5 unit SQ TID dm 12/16/18 08/20/20 subcutaneous cartridge levothyroxine 100 mcg tablet 100 mg PO DAILY . 12/16/18 08/20/20 pantoprazole 40 mg tablet,delayed 40 mg PO DAILY . 12/16/18 08/20/20 release Previous Rx's Medication Instructions Recorded cyclobenzaprine 5 mg tablet 5 mg PO Q8HP PRN pain/spasm #30 08/20/20 tabs ketorolac 10 mg tablet 10 mg PO Q6H 5 days #20 tabs 08/20/20 cyclobenzaprine 5 mg tablet 5 mg PO TIDP PRN As Needed For 08/24/20 Fever Or Pain 7 days #12 tabs lidocaine 5 % topical patch 1 each TP Q24H PRN As Needed For 08/24/20 Fever Or Pain 7 days ##7 azithromycin 250 mg tablet 250 mg PO DIRECTED #6 tabs 03/08/22 amoxicillin 875 mg-potassium 1 tab PO Q12H #20 tabs 07/31/22 clavulanate 125 mg tablet benzonatate 100 mg capsule 100 mg PO TIDP PRN Cough #30 caps 07/31/22 Allergies Allergy/AdvReac Type Severity Reaction Status Date / Time No Known Allergies Allergy Verified 05/05/19 10:08 PFSH PFS Social History (Reviewed 07/31/22 @ 23:16 by Duc Villalobos, APR
[2022-07-31 15:08] LABS: UTC Strep Screen (Rapid) Positive (Negative)
[2022-07-31 15:19] VITALS: BP 110/74; PULSE 100; RESP 18; TEMP 37.8; O2SAT 98
== END 2022-07-31 15:20 | disposition home or self-care (01) ==
PROVIDERS: Emergency Provider Nurse Practitioner Family; PCP Family Medicine
DX: U07.1 COVID-19 (principal); J02.0 Streptococcal pharyngitis
CPT/HCPCS: 87880; 99212; C9803; G0463; U0003; U0005

== ENCOUNTER → 2023-02-27 09:51 | Outpatient (CLI) | payer MEDICARE, OTHER, SELFPAY ==
--- NOTE | 2023-02-27 09:54 | CA_ITS ---
FINAL REPORT TECHNIQUE: Color Doppler, duplex Doppler and keyes scale sonography of the bilateral neck arterial vasculature was performed. Velocities were measured in the carotid arteries. Stenosis evaluation based on the validated velocity criteria. CLINICAL HISTORY: HTN, HLD, Smoker. FINDINGS: The peak systolic velocity of the right common carotid artery is 62 cm/s. The peak systolic velocity of the right internal carotid artery is 75 cm/s and end diastolic velocity 23 cm/s. The ICA/CCA ratio is 1.2. A mild amount of plaque is present. The right external carotid artery is patent. The right vertebral artery is patent with antegrade flow. The peak systolic velocity of the left common carotid artery is 73 cm/s. The peak systolic velocity of the left internal carotid artery is 92 cm/s and end diastolic velocity 41 cm/s. The ICA/CCA ratio is 1.3. A mild amount of plaque is present. The left external carotid artery is patent.The left vertebral artery is patent with antegrade flow. IMPRESSION: Less than 50% bilateral carotid stenosis. Bilateral patent vertebral arteries with antegrade flow. If indicated, CTA or MRA could further evaluate. Reviewed, Interpreted and Dictated by Nikolai Baker III, MD Transcribed by Harper Cruz Authenticated and [facility]
== END ==
LOC: RT 09:52
PROVIDERS: PCP Family Medicine; Visit Provider Nurse Practitioner Family
DX: R42 Dizziness and giddiness (principal)
CPT/HCPCS: 93880

== ENCOUNTER 2023-04-02 12:43 | Emergency (ER) | payer MEDICARE, OTHER, SELFPAY ==
[2023-04-02 12:43] VITALS: BP 97/64; PULSE 88; RESP 18; TEMP 36.9; O2SAT 98; BMI 27.7
[2023-04-02 12:44] VITALS: BP 97/64; PULSE 88; O2SAT 95
--- NOTE | 2023-04-02 12:48 | HMH.EDGENADL ---
Discharge Plan Disposition Patient Disposition: Home, Self-Care Chief Complaint: Weakness Prescriptions Prescriptions: No Action allopurinol 100 MG tablet 100 mg PO DAILY amlodipine 10 MG tablet 10 mg PO DAILY lisinopril 40 MG tablet 40 mg PO DAILY atorvastatin 10 MG tablet 10 mg PO HS dorzolamide-timolol 10 ML drops 1 drp EYE-BOTH BID Label Comments: instill 1 drop into both eyes twice a day insulin glargine 100 UNIT/ML solution 15 unit SQ DAILY levothyroxine 100 MCG tablet 100 mg PO DAILY pantoprazole 40 MG tablet,delayed release (DR/EC) 40 mg PO DAILY insulin lispro 100 UNIT/ML cartridge 5 unit SQ TID lidocaine 1 EACH adhesive patch,medicated 1 each TP Q24H PRN (Reason: As Needed For Fever Or Pain) 7 Days Qty: 7 0RF cyclobenzaprine 5 MG tablet 5 mg PO TIDP PRN (Reason: As Needed For Fever Or Pain) 7 Days Qty: 12 0RF azithromycin 250 MG tablet 250 mg PO DIRECTED Qty: 6 0RF Rx Instructions: Take two (2) tablets on day #1, then one (1) tablet day #2 thru #5 ketorolac 10 MG tablet 10 mg PO Q6H 5 Days Qty: 20 0RF cyclobenzaprine 5 MG tablet 5 mg PO Q8HP PRN (Reason: pain/spasm) Qty: 30 0RF benzonatate [benzonatate] 100 mg capsule 100 mg PO TIDP PRN (Reason: Cough) Qty: 30 0RF amoxicillin-pot clavulanate 875-125 mg Tablet 1 tab PO Q12H Qty: 20 0RF Activity Restrictions/Add. Instructions Additional Instructions/Restrictions: Return the emergency department for worsening pain diarrhea or any other concerns within the next 8 hours otherwise follow-up with Dr. Gimenez within the next few days. Clinical Impressions Clinical Impression: Diarrhea Discharge ED Provider: Tor Kimbrough General Adult HPI General Chief complaint: Weakness Stated complaint: Diarrhea Time Seen by Provider: 04/02/23 12:49 History of Present Illness HPI narrative: 68-year-old male presents with generalized weakness. He says he has had diarrhea that has been watery for about 1 month. He has no abdominal pain. He has history of diarrhea on and off for the last 3 years unknown etiology per report. He says he is presenting to the emergency department because he has been feeling lightheaded and weak. No bleeding in the diarrhea and no fevers. No vision changes numbness weakness or tingling arms or legs Related Data Home Medications Medication Instructions Recorded Confirmed allopurinol 100 mg tablet 100 mg PO DAILY gout 09/05/18 08/20/20 amlodipine 10 mg tablet 10 mg PO DAILY BLOOD PRESSURE 09/05/18 08/20/20 lisinopril 40 mg tablet 40 mg PO DAILY BLOOD PRESSURE 09/05/18 08/20/20 atorvastatin 10 mg tablet 10 mg PO HS Cholesterol 12/02/18 08/20/20 dorzolamide 22.3 mg-timolol 6.8 1 drp EYE-BOTH BID Glaucoma 12/02/18 08/20/20 mg/mL eye drops insulin glargine 100 unit/mL 15 unit SQ DAILY Diabetes 12/16/18 08/20/20 subcutaneous solution insulin lispro 100 unit/mL 5 unit SQ TID dm 12/16/18 08/20/20 subcutaneous cartridge levothyroxine 100 mcg tablet 100 mg PO DAILY . 12/16/18 08/20/20 pantoprazole 40 mg tablet,delayed 40 mg PO DAILY . 12/16/18 08/20/20 release Previous Rx's Medication Instructions Recorded cyclobenzaprine 5 mg tablet 5 mg PO Q8HP PRN pain/spasm #30 08/20/20 tabs ketorolac 10 mg tablet 10 mg PO Q6H 5 days #20 tabs 08/20/20 cyclobenzaprine 5 mg tablet 5 mg PO TIDP PRN As Needed For 08/24/20 Fever Or Pain 7 days #12 tabs lidocaine 5 % topical patch 1 each TP Q24H PRN As Needed For 08/24/20 Fever Or Pain 7 days ##7 azithromycin 250 mg tablet 250 mg PO DIRECTED #6 tabs 03/08/22 amoxicillin 875 mg-potassium 1 tab PO Q12H #20 tabs 07/31/22 clavulanate 125 mg tablet benzonatate 100 mg capsule 100 mg PO TIDP PRN Cough #30 caps 07/31/22 Allergies Allergy/AdvReac Type Severity Reaction Status Date / Time No Known Allergies Allergy Verified 05/05/19 10:08 [facility] Disclaimer: The inf
--- NOTE | 2023-04-02 12:55 | PC.NURSE ---
1240 ED MD AT BEDSIDE
[2023-04-02 13:00] VITALS: BP 92/54; PULSE 81; O2SAT 99
[2023-04-02 13:05] LABS: Chloride 95 mmol/L (98-107); Sodium 138 mmol/L (136-145)
[2023-04-02 13:06] LABS: Potassium 3.8 mmoL/L (3.5-5.1)
[2023-04-02 13:08] LABS: Alanine Aminotransferase 39 U/L (12-78); Albumin Level 4.3 g/dl (3.5-5.0); Alkaline Phosphatase 78 U/L (38-126); Anion Gap 19.8 mEq/L (5-15); Aspartate Amino Transferase 42 U/L (17-59); Bilirubin,Total 0.5 mg/dl (0.2-1.3); Blood Urea Nitrogen 22 mg/dl (9-20); Carbon Dioxide 27 mmol/L (22.0-30.0); Creatinine Clearance Estimated 61 mL/min (50-200); Estimated Glomerular Filt Rate 47 ml/min (>60); GFR (African American) 56 ML/MIN (>60); Globulin 4.5 g/dL (1.3-3.2); Lipase 102 U/L (23-300); Total Protein,Serum 8.8 g/dl (6.3-8.2)
[2023-04-02 13:09] LABS: Calcium 9.2 mg/dl (8.4-10.2); Glucose 145 mg/dl (74-100); Magnesium 1.7 mg/dl (1.6-2.3)
[2023-04-02 13:15] LABS: Basophils % 0.8 % (0.1-2.0); Eosinophils # 0.3 K/mm3 (0.0-0.4); Eosinophils % 5.1 % (0.1-12.0); Hematocrit 30.3 % (42.0-52.0); Hemoglobin 9.7 g/dL (14.1-18.0); Lymphocytes # 2.2 K/mm3 (0.7-4.5); Lymphocytes % 42.9 % (10-50); Mean Corpuscular HGB Conc 31.9 g/dL (31.8-35.4); Mean Corpuscular Hemoglobin 32.6 pg (27.0-31.2); Mean Corpuscular Volume 102.3 fl (80-94); Mean Platelet Volume 8.1 fl (7.4-10.4); Monocytes # 0.4 K/mm3 (0.1-1.0); Monocytes % 8.3 % (1.7-9.3); Neutrophils # 2.2 K/mm3 (1.8-7.8); Neutrophils % 42.9 % (37.0-80.0); Platelet Count 370 K/mm3 (142-424); Red Blood Count 2.97 M/mm3 (4.60-6.20); Red Cell Distribution Width 14.2 % (11.5-17.5); White Blood Count 5.2 K/mm3 (4.8-10.8)
[2023-04-02 13:26] LABS: Troponin I < 0.01 ng/ml (0.00-0.034)
--- NOTE | 2023-04-02 13:28 | PC.NURSE ---
ER AT BEDSIDE
[2023-04-02 13:30] VITALS: BP 100/57; PULSE 78; O2SAT 100
--- NOTE | 2023-04-02 13:31 | PC.NURSE ---
DR MURCIA AT BEDSIDE TO UPDATE FAMILY
--- NOTE | 2023-04-02 13:34 | PC.NURSE ---
CALLED DR CODY OFFICE FOR GAIL AGUIAR TO SPEAK WITH, HE IS CURRENTLY IN A PT ROOM AND WILL CALL BACK
--- NOTE | 2023-04-02 13:35 | XR_ITS ---
FINAL REPORT CLINICAL HISTORY: Vertigo x days, 0 chest complaints. Nonsmoker. COMPARISON: 03/08/2022 FINDINGS: SINGLE-VIEW CHEST The heart size is normal. The mediastinum is normal. There is mild left base opacity, may represent atelectasis or pneumonia. There is no pneumothorax. IMPRESSION: Left base atelectasis or pneumonia. Reviewed, Interpreted and Dictated by Nikolai Baker III, MD Transcribed by Sharon Cabrera Authenticated and [facility]
--- NOTE | 2023-04-02 13:49 | PC.NURSE ---
DR MURCIA SPEAKING WITH DR CALDERON
--- NOTE | 2023-04-02 13:50 | PC.NURSE ---
GAIL AGUIAR SPEAKING WITH DR CALDERON
[2023-04-02 14:09] VITALS: BP 112/60; PULSE 69; O2SAT 100
--- NOTE | 2023-04-02 14:10 | PC.NURSE ---
Stool specimen and UA was sent up
--- NOTE | 2023-04-02 14:21 | PC.NURSE ---
ROUNDED ON PT NO COMPLAINTS AT THIS TIME, TAP SAMUEL AT BEDSIDE
[2023-04-02 14:22] LABS: Adenovirus F 40/41, stool Not Detected (NotDetected); Astrovirus Not Detected (NotDetected); Campylobacter Not Detected (NotDetected); Cryptosporidium Not Detected (NotDetected); Cyclospora Cayetanesis Not Detected (NotDetected); Entamoeba histolytica Not Detected (NotDetected); Enteroaggregative E coli Not Detected (NotDetected); Enteropathogenic E coli Not Detected (NotDetected); Enterotoxigenic E coli Not Detected (NotDetected); Giardia lamblia Not Detected (NotDetected); Norovirus Not Detected (NotDetected); Plesimonas Shigalloides, PCR Not Detected (NotDetected); Rotavirus A Not Detected (NotDetected); Salmonella, PCR Not Detected (NotDetected); Sapovirus Not Detected (NotDetected); Shiga-like toxin E coli Not Detected (NotDetected); Shigella Enterovasive E coli Not Detected (NotDetected); Vibrio Cholerae Not Detected (NotDetected); Vibrio, PCR Not Detected (NotDetected); Yersinia Entercolitica, PCR Not Detected (NotDetected)
[2023-04-02 14:24] LABS: Microscopic, Urine URINE MICROSCOPIC (MICROSCOPIC)
[2023-04-02 14:37] LABS: Appearance,Urine CLEAR (Clear); Bilirubin,Urine Negative (Negative); Blood, Urine TRACE-I (Negative); Color,Urine YELLOW (Yellow); Glucose,Urine (UA) 3+ (Negative); Ketones,Urine Negative (Negative); Leukocyte Esterase,Urine TRACE (Negative); Nitrate,Urine Negative (Negative); PH,Urine 5.5 (5.0-8.5); Protein,Urine TRACE (Negative); Urobilinogen,Urine 0.2 EU/dl (0.2)
[2023-04-02 15:05] LABS: Bacteria,Urine Trace /lpf; RBC,Urine Occasional #/hpf (0-3); Squamous Epithelial Cell,Urine Occasional #/hpf (0-5)
[2023-04-02 15:20] VITALS: BP 112/60; PULSE 69; RESP 18; TEMP 36.9; O2SAT 100
[2023-04-02 17:03] LABS: Clostridium Difficile A/B, PCR Detected (NotDetected)
== END 2023-04-02 15:22 | disposition home or self-care (01) ==
PROVIDERS: Emergency Provider Emergency Medicine; PCP Family Medicine
DX: R53.1 Weakness (principal); R19.7 Diarrhea, unspecified; Z87.891 Personal history of nicotine dependence
CPT/HCPCS: 71045; 80053; 81001; 83690; 83735; 84484; 85025; 87045; 87507; 96361; 96374; 99284; 99285; J2405

== ENCOUNTER → 2023-04-05 15:23 | Outpatient (CLI) | payer MEDICARE, OTHER, SELFPAY ==
--- NOTE | 2023-04-05 15:28 | XR_ITS ---
FINAL REPORT CLINICAL HISTORY: LT SHOULDER PAIN, possible gout, no injury FINDINGS: Left shoulder three views: 3 views of the left shoulder were obtained. There is no acute fracture or dislocation. Mild degenerative change of the acromioclavicular joint are present. Mild degenerative change at the glenohumeral joint is seen as well. There is no soft tissue abnormality. IMPRESSION: Mild degenerative change of the AC joint and glenohumeral joint. Reviewed, Interpreted and Dictated by Nikolai Baker III, MD Transcribed by Gabrielle Wiggins Authenticated and [facility]
== END ==
PROVIDERS: PCP Nurse Practitioner Family; Visit Provider Nurse Practitioner Family
DX: M25.512 Pain in left shoulder (principal)
CPT/HCPCS: 73030

== ENCOUNTER → 2023-04-17 07:53 | Outpatient (CLI) | payer MEDICARE, OTHER, SELFPAY ==
--- NOTE | 2023-04-17 08:01 | CT_ITS ---
FINAL REPORT CLINICAL HISTORY: former smoker, quit 5 years ago. 1 ppd x 35 years FINDINGS: Axial images were obtained from the lung apex to the mid abdomen by computed tomography. Low-dose protocol was utilized. CTDl vol(mGy): 2.90 DLP (mGy-cm): 104.20 FINDINGS: There is no axillary adenopathy. There is no hilar or mediastinal adenopathy. The heart size is normal. There is no pericardial or pleural effusion. There are scattered calcified granulomas. Limited images of the upper abdomen are unremarkable. Lung window images demonstrate no suspicious infiltrate or nodule. IMPRESSION: No suspicious pulmonary mass or nodule. Lung RADS category 1. Recommend 12 month follow-up low-dose chest CT. Reviewed, Interpreted and Dictated by Dillon Hebert MD Transcribed by Lyubov Resendiz Authenticated and [facility]
--- NOTE | 2023-04-17 08:02 | CT_ITS ---
FINAL REPORT TECHNIQUE: Postcontrast axial images through the abdomen and pelvis were performed. This study was performed with techniques to keep radiation doses as low as reasonably achievable, (ALARA). Individualized dose reduction techniques using automated exposure control or adjustment of mA and/or kV according to the patient's size were employed. CLINICAL HISTORY: DIARREHEA FINDINGS: Abdomen: The lung bases are clear. The liver is normal in size and attenuation. The spleen is unremarkable. The adrenals are normal. The pancreas is unremarkable. There are multiple bilateral renal cysts, right much greater than left. There are bilateral nonobstructing renal stones. The aorta is normal in caliber. No free fluid or adenopathy is identified. No findings for mechanical bowel obstruction are identified. Pelvis: The appendix is n normal. Pelvic bowel loops are unremarkable. The prostate appears normal. The urinary bladder is unremarkable. There is right inguinal adenopathy. The largest node measures 2.2 cm. IMPRESSION: 1. No bowel wall thickening or inflammatory change. 2. Nonobstructing bilateral renal stones. 3. Normal appendix. 4. Nonspecific right inguinal adenopathy. Although probably benign, neoplastic process is not excluded. Three-month follow-up is recommended. Reviewed, Interpreted and Dictated by Dillon Hebert MD Transcribed by Lyubov Resendiz Authenticated and [facility]
== END ==
PROVIDERS: PCP Nurse Practitioner Family; Visit Provider Nurse Practitioner Family
DX: Z87.891 Personal history of nicotine dependence (principal); Z12.2 Encounter for screening for malignant neoplasm of respiratory organs; R19.7 Diarrhea, unspecified; R63.4 Abnormal weight loss
CPT/HCPCS: 71271; 74177; Q9967

== ENCOUNTER → 2023-05-04 17:54 | Outpatient (CLI) | payer MEDICARE, OTHER, SELFPAY | PROVIDERS: PCP Nurse Practitioner Family; Visit Provider Nurse Practitioner Family | DX: A04.72 Enterocolitis due to Clostridium difficile, not specified as recurrent (principal) | CPT/HCPCS: 87045; 87493 ==

== ENCOUNTER → 2023-05-08 12:53 | Outpatient (CLI) | payer MEDICARE, OTHER, SELFPAY | PROVIDERS: PCP Nurse Practitioner Family; Visit Provider Nurse Practitioner Family | DX: A04.72 Enterocolitis due to Clostridium difficile, not specified as recurrent (principal) | CPT/HCPCS: 87045; 87493 ==

== ENCOUNTER → 2023-05-20 13:27 | Outpatient (CLI) | payer MEDICARE, OTHER, SELFPAY ==
[2023-05-23 08:22] LABS: H. pylori Stool Ag, EIA Negative (Negative)
[2023-05-23 19:45] LABS: Fats, Neutral Normal (.); Fats, Total Normal (.)
[2023-05-23 21:38] LABS: Pancreatic Elastase, Fecal 316 (>200)
== END ==
PROVIDERS: PCP Nurse Practitioner Family; Visit Provider Internal Medicine Gastroenterology
DX: R19.7 Diarrhea, unspecified (principal); A04.72 Enterocolitis due to Clostridium difficile, not specified as recurrent
CPT/HCPCS: 82656; 82705; 87045; 87177; 87205; 87338

== ENCOUNTER → 2023-08-05 08:54 | Outpatient (CLI) | payer MEDICARE, OTHER, SELFPAY ==
--- NOTE | 2023-08-05 08:59 | CT_ITS ---
FINAL REPORT TECHNIQUE: Thin section axial images are obtained through the abdomen and pelvis after intravenous contrast. Reconstruction images were obtained from the axial data. Exam was performed using dose reduction techniques. CLINICAL HISTORY: INGUINAL ADENOPATHY COMPARISON: 04/17/2023 FINDINGS: LUNG BASES: There are calcified granulomas present in the lung bases bilaterally. There are also a few noncalcified right lower lobe nodules present, likely granulomatous disease. Heart size is normal. LIVER: There is diffuse fatty infiltration of the liver. No focal lesion. GALLBLADDER/BILIARY SYSTEM: Gallbladder is present. No gallstones. No biliary dilatation. SPLEEN: Unremarkable. PANCREAS: Unremarkable. ADRENALS: Unremarkable. SYSTEM: There are multiple bilateral renal cysts and nonobstructing stones, stable from the prior CT. Unremarkable urinary bladder. Pelvic organs are unremarkable for age. GI TRACT: A small hiatal hernia is present. No small bowel obstruction or dilatation. Normal appendix. The appendix is normal in appearance. There is diverticulosis present in the sigmoid colon. LYMPH NODES/RETROPERITONEUM/MESENTERY: Right inguinal adenopathy remains present, unchanged since the prior exam. The largest inguinal node on the prior examination measured 2.2 cm in size, is now 2 cm in size. No abdominal aortic aneurysm. OTHER: No ascites. Remaining soft tissues without acute abnormality. BONES: No acute osseous abnormality. IMPRESSION: Right inguinal adenopathy remains present, unchanged since April 2023. Bilateral renal cysts and nonobstructing stones, also unchanged since the prior exam. Reviewed, Interpreted and Dictated by Pauly Cabrera MD Transcribed by Gabrielle Wiggins Authenticated and [facility] [place]
[2023-08-05 09:22] LABS: Blood Urea Nitrogen 18 mg/dl (9-20); Estimated Glomerular Filt Rate 67 ml/min (>60); GFR (African American) 81 ML/MIN (>60)
== END ==
PROVIDERS: PCP Nurse Practitioner Family; Visit Provider Family Medicine
DX: R59.0 Localized enlarged lymph nodes (principal)
CPT/HCPCS: 36415; 74177; 82565; 84520; Q9967

== ENCOUNTER 2023-09-18 13:41 | Emergency (ER) | payer MEDICARE, OTHER, SELFPAY ==
[2023-09-18 13:41] VITALS: BP 115/59; PULSE 98; RESP 20; TEMP 36.8; O2SAT 99; BMI 27.2
--- NOTE | 2023-09-18 13:48 | ECG_ITS ---
APPROVED REPORT Exam: Resting ECG HR:99 bpm ECG Measurements Heart Rate 99 AXES MN 143 P 63 QRSd 90 QRS 30 QT 338 T 59 QTc 394 Conclusion SINUS RHYTHM PROBABLE INFERIOR MYOCARDIAL INFARCTION , PROBABLY OLD [35 ms Q WAVE IN II/aVF] ABNORMAL ECG UNCONFIRMED REPORT Electronically signed by : Gualberto Thakkar MD 09/19/2023 17:32:37
--- NOTE | 2023-09-18 13:59 | PC.NURSE ---
Dr. Parks at [facility] for pt eval
[2023-09-18 14:00] VITALS: BP 92/64; PULSE 96; RESP 14; O2SAT 100
--- NOTE | 2023-09-18 14:05 | XR_ITS ---
FINAL REPORT CLINICAL HISTORY: general weakness FINDINGS: A portable view of the chest was obtained. Cardiac and mediastinal silhouettes are within normal limits. There are low lung volumes. There is no acute abnormality. There is no pleural effusion or pneumothorax. IMPRESSION: No acute process on this portable exam. Reviewed, Interpreted and Dictated by Pauly Cabrera MD Transcribed by Lyubov Resendiz Authenticated and [facility]
[2023-09-18 14:15] LABS: Basophils % 0.5 % (0.1-2.0); Eosinophils # 0.6 K/mm3 (0.0-0.4); Eosinophils % 8.5 % (0.1-12.0); Hemoglobin 10.7 g/dL (14.1-18.0); Lymphocytes % 39.4 % (10-50); Mean Corpuscular HGB Conc 33.3 g/dL (31.8-35.4); Mean Corpuscular Hemoglobin 33.2 pg (27.0-31.2); Mean Corpuscular Volume 99.6 fl (80-94); Mean Platelet Volume 8.1 fl (7.4-10.4); Monocytes # 0.4 K/mm3 (0.1-1.0); Monocytes % 5.8 % (1.7-9.3); Neutrophils # 3.5 K/mm3 (1.8-7.8); Neutrophils % 45.8 % (37.0-80.0); Platelet Count 346 K/mm3 (142-424); Red Blood Count 3.21 M/mm3 (4.60-6.20); Red Cell Distribution Width 13.2 % (11.5-17.5); White Blood Count 7.5 K/mm3 (4.8-10.8)
[2023-09-18 14:16] LABS: Chloride 103 mmol/L (98-107); Potassium 3.9 mmoL/L (3.5-5.1); Sodium 139 mmol/L (136-145)
[2023-09-18 14:19] LABS: Alanine Aminotransferase 32 U/L (12-78); Albumin Level 4.2 g/dl (3.5-5.0); Albumin/Globulin Ratio 1.1 (1.1-1.8); Alkaline Phosphatase 72 U/L (38-126); Anion Gap 11.9 mEq/L (5-15); Aspartate Amino Transferase 31 U/L (17-59); Bilirubin,Total 0.4 mg/dl (0.2-1.3); Blood Urea Nitrogen 25 mg/dl (9-20); Calcium 9.2 mg/dl (8.4-10.2); Carbon Dioxide 28 mmol/L (22.0-30.0); Chol/HDL Ratio 4.1 (1-3.5); Cholesterol 90 mg/dl (140-200); Creatinine Clearance Estimated 67 mL/min (50-200); Estimated Glomerular Filt Rate 55 ml/min (>60); GFR (African American) 67 ML/MIN (>60); Globulin 3.8 g/dL (1.3-3.2); Glucose 134 mg/dl (74-100); HDL Cholesterol 22 mg/dl (40-60); Triglycerides 70 mg/dl (30-150); VLDL Cholesterol 14 mg/dL (0-40)
[2023-09-18 14:30] VITALS: BP 111/61; PULSE 91; RESP 18; O2SAT 99
[2023-09-18 14:31] LABS: Direct LDL Cholesterol 50.56 mg/dL (100-129)
[2023-09-18 14:32] LABS: NT Pro Brain Natriuretic Pep. 223 pg/mL (0-125)
[2023-09-18 14:39] LABS: T4 (Thyroxine) 14.1 ug/dl (5.53-11.0)
--- NOTE | 2023-09-18 14:39 | HMH.EDGENADL ---
Discharge Plan Disposition Patient Disposition: Home, Self-Care Condition: Good Prescriptions Prescriptions: No Action allopurinol 100 MG tablet 100 mg PO DAILY amlodipine 10 MG tablet 10 mg PO DAILY lisinopril 40 MG tablet 40 mg PO DAILY atorvastatin 10 MG tablet 10 mg PO HS dorzolamide-timolol 10 ML drops 1 drp EYE-BOTH BID Patient Comments: instill 1 drop into both eyes twice a day insulin glargine 100 UNIT/ML solution 15 unit SQ DAILY levothyroxine 100 MCG tablet 100 mg PO DAILY pantoprazole 40 MG tablet,delayed release (DR/EC) 40 mg PO DAILY insulin lispro 100 UNIT/ML cartridge 5 unit SQ TID lidocaine 1 EACH adhesive patch,medicated 1 each TP Q24H PRN (Reason: As Needed For Fever Or Pain) 7 Days Qty: 7 0RF cyclobenzaprine 5 MG tablet 5 mg PO TIDP PRN (Reason: As Needed For Fever Or Pain) 7 Days Qty: 12 0RF azithromycin 250 MG tablet 250 mg PO DIRECTED Qty: 6 0RF Rx Instructions: Take two (2) tablets on day #1, then one (1) tablet day #2 thru #5 ketorolac 10 MG tablet 10 mg PO Q6H 5 Days Qty: 20 0RF cyclobenzaprine 5 MG tablet 5 mg PO Q8HP PRN (Reason: pain/spasm) Qty: 30 0RF benzonatate [benzonatate] 100 mg capsule 100 mg PO TIDP PRN (Reason: Cough) Qty: 30 0RF amoxicillin-pot clavulanate 875-125 mg Tablet 1 tab PO Q12H Qty: 20 0RF vancomycin 125 mg capsule 125 mg PO Q6H 10 Days Qty: 40 0RF Referrals Follow up/Referrals: Martine Gimenez MD [Primary Care Provider] - See instructions Activity Restrictions/Add. Instructions Additional Instructions/Restrictions: Call your family doctor to establish care for this visit to the emergency department and schedule follow-up within 48 hours to ensure improvement. If you have any worsening of your condition or any other concerning signs or symptoms, return to the emergency department or your primary care doctor for further evaluation. Clinical Impressions Clinical Impression: Generalized weakness Discharge ED Provider: Jacob Parks General Adult HPI General Chief complaint: Weakness Stated complaint: weakness, soa Time Seen by Provider: 09/18/23 13:43 Mode of Arrival: Ambulatory Source of Information: Patient Limitations: No Limitations Description of Symptoms (Recalled from ER Triage Doc. by RN): Patient reports feeling tired, weak and SOB for 2 months but has gotten worse over the past week. History of Present Illness HPI narrative: This is a 68-year-old male with history of hypertension, hyperlipidemia, hypothyroidism, diabetes, gout presenting with generalized weakness. Been weak for about 2 months. Gotten worse progressively. Patient states that he is not unilaterally weak, just generally. Has not sought help with his primary care physician. Denies unintended weight loss or weight gain, fevers or chills, night sweats, chest pain, shortness of breath, nausea or vomiting, abdominal pain, vomiting, but has had nonbloody, non-mucousy diarrhea for 2 or 3 years. Related Data Home Medications Medication Instructions Recorded Confirmed allopurinol 100 mg tablet 100 mg PO DAILY gout 09/05/18 08/20/20 amlodipine 10 mg tablet 10 mg PO DAILY BLOOD PRESSURE 09/05/18 08/20/20 lisinopril 40 mg tablet 40 mg PO DAILY BLOOD PRESSURE 09/05/18 08/20/20 atorvastatin 10 mg tablet 10 mg PO HS Cholesterol 12/02/18 08/20/20 dorzolamide 22.3 mg-timolol 6.8 1 drp EYE-BOTH BID Glaucoma 12/02/18 08/20/20 mg/mL eye drops insulin glargine 100 unit/mL 15 unit SQ DAILY Diabetes 12/16/18 08/20/20 subcutaneous solution insulin lispro 100 unit/mL 5 unit SQ TID dm 12/16/18 08/20/20 subcutaneous cartridge levothyroxine 100 mcg tablet 100 mg PO DAILY . 12/16/18 08/20/20 pantoprazole 40 mg tablet,delayed 40 mg PO DAILY . 12/16/18 08/20/20 release Previous Rx's Medication Instructions Recorded cyclobenzaprine 5 mg tablet 5 mg PO Q8HP PRN pain/spasm #30 08/11
[2023-09-18 14:41] LABS: Troponin I < 0.01 ng/ml (0.00-0.034)
--- NOTE | 2023-09-18 14:47 | PC.NURSE ---
RT aware of [facility] order
[2023-09-18 14:53] LABS: Thyroid Stimulating Hormone 0.02 uIU/mL (0.465-4.68)
[2023-09-18 14:53] LABS: VBG Base Excess -4.4 mmol/L (-2.4-2.3); VBG HCO3 21.8 mmol/L (23-30); VBG PCO2 43.4 mmol/L (35-51); VBG PH 7.32 mmol/L (7.31-7.41); VBG PO2 42.8 mmol/L (28-40); VBG Total CO2 23.1 mmol/L (23-27)
[2023-09-18 14:58] LABS: Hemoglobin A1C 4.9 % (4.0-6.0)
[2023-09-18 15:00] VITALS: BP 121/61; PULSE 82; RESP 18; O2SAT 98
[2023-09-18 15:30] VITALS: BP 121/61; PULSE 83; RESP 16; TEMP 36.8; O2SAT 100
== END 2023-09-18 15:31 | disposition home or self-care (01) ==
PROVIDERS: Emergency Provider Emergency Medicine; PCP Family Medicine
DX: R53.1 Weakness (principal); R06.02 Shortness of breath; R19.7 Diarrhea, unspecified; E03.9 Hypothyroidism, unspecified; E11.9 Type 2 diabetes mellitus without complications; Z79.4 Long term (current) use of insulin
CPT/HCPCS: 71045; 80053; 80061; 82803; 83036; 83880; 84436; 84443; 84484; 85025; 93005; 96360; 99284

== ENCOUNTER 2024-02-12 10:57 | Emergency (ER) | payer OTHER, SELFPAY ==
[2024-02-12 10:58] VITALS: BP 155/73; PULSE 68; RESP 18; TEMP 36.5; O2SAT 97; BMI 25.8
--- NOTE | 2024-02-12 11:13 | XR_ITS ---
FINAL REPORT CLINICAL HISTORY: atraumatic L shoulder pain COMPARISON: 04/05/2023 FINDINGS: Left shoulder Three views were obtained. There is no acute fracture or dislocation. There are mild AC and glenohumeral joint degenerative changes. No soft tissue abnormality is identified. IMPRESSION: Mild degenerative changes. Reviewed, Interpreted and Dictated by Nikolai Baker III, MD Transcribed by Sharon Cabrera Authenticated and [facility]
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
[2024-02-12] MEDS: LIDOCAINE 5% TRANSDERMAL PATCH 1 EACH TP (11:17)
[2024-02-12] MEDS: predniSONE 20MG TAB 40 MG PO (11:17)
[2024-02-12 11:31] VITALS: BP 133/84; PULSE 72; O2SAT 99
[2024-02-12 12:08] VITALS: BP 130/80; PULSE 77; RESP 18; TEMP 36.6; O2SAT 98
== END 2024-02-12 12:11 | disposition home or self-care (01) ==
PROVIDERS: Emergency Provider Emergency Medicine; PCP Family Medicine
DX: M25.512 Pain in left shoulder (principal); M75.82 Other shoulder lesions, left shoulder; E11.9 Type 2 diabetes mellitus without complications; E03.9 Hypothyroidism, unspecified; I10 Essential (primary) hypertension; E78.5 Hyperlipidemia, unspecified; Z79.4 Long term (current) use of insulin
CPT/HCPCS: 73030; 99283

== ENCOUNTER 2024-12-21 09:06 | Emergency (ER) | payer MEDICARE, SELFPAY ==
[2024-12-21 09:07] VITALS: BP 152/84; PULSE 93; RESP 18; TEMP 36.5; O2SAT 98; BMI 30.1
[2024-12-21 09:10] VITALS: BP 152/84; PULSE 108; O2SAT 98
[2024-12-21 09:11] VITALS: BP 126/70; PULSE 94; O2SAT 98
--- NOTE | 2024-12-21 09:20 | PC.NURSE ---
DR CARDOZO AT BEDSIDE
--- NOTE | 2024-12-21 09:25 | CT_ITS ---
FINAL REPORT TECHNIQUE: Oral and IV contrast enhanced exam This study was performed with techniques to keep radiation doses as low as reasonably achievable, (ALARA). Individualized dose reduction techniques using automated exposure control or adjustment of mA and/or kV according to the patient''s size were employed. CLINICAL HISTORY: bilateral buttocks pain and swelling. hemorrhoids COMPARISON: 08/05/2023 FINDINGS: CT ABDOMEN PELVIS WITH CONTRAST: Abdomen: No acute density is seen within the lung bases. The gallbladder is unremarkable. Fatty infiltration of the liver is present. The pancreas, spleen, and adrenal glands are unremarkable. There are bilateral renal cysts noted, more prominent on the right than on the left. There are small bilateral nonobstructing renal stones again noted as well. The overall appearance is stable. No bowel obstruction is present. There is no free air. No fluid collection is seen. There is no adenopathy. Pelvis: The appendix is normal. No evidence of a pelvic mass is identified. There is mild bilateral inguinal adenopathy noted, more prominent on the right side than the left side, that is likely benign/reactive. The largest node on the right measures up to 19 mm in size, stable when compared to the prior exam. No perirectal masses or hemorrhage is identified. No findings are identified to account for patient's symptoms. No bowel wall thickening is present. There is no free fluid. No pelvic mass is seen. IMPRESSION: No findings to account for symptoms. Mild bilateral inguinal adenopathy, more prominent on the right than on the left, likely benign/reactive, stable when compared to the prior CT of 2022. Multiple bilateral renal cysts, with small bilateral nonobstructing renal stones, stable in appearance. Reviewed, Interpreted and Dictated by Dillon Hebert MD Transcribed by Gabrielle Wiggins Authenticated and [facility]
--- NOTE | 2024-12-21 09:26 | HMH.EDGENADL ---
Discharge Plan Disposition Patient Disposition: Home, Self-Care Prescriptions Prescriptions: New sulfamethoxazole-trimethoprim [Bactrim DS] 800-160 mg tablet 1 tab PO BID 10 Days Qty: 20 0RF cephalexin 500 mg capsule 500 mg PO QID 10 Days Qty: 40 0RF No Action atorvastatin 10 MG tablet 10 mg PO HS levothyroxine 137 mcg tablet 137 mcg PO DAILY Patient Comments: TAKE 1 TABLET BY MOUTH DAILY IN THE MORNING ON AN EMPTY STOMACH allopurinol 100 mg tablet 100 mg PO DAILY Patient Comments: TAKE 1 TABLET BY MOUTH EACH DAY meloxicam 7.5 mg tablet 7.5 mg PO DAILY Patient Comments: TAKE 1 TABLET BY MOUTH ONCE DAILY tamsulosin 0.4 mg capsule 0.4 mg PO DAILY Patient Comments: TAKE 1 CAPSULE BY MOUTH DAILY amlodipine 10 mg tablet 10 mg PO DAILY Patient Comments: TAKE 1 TABLET BY MOUTH EVERY DAY Jardiance 10 mg tablet 10 mg PO DAILY Patient Comments: TAKE 1 TABLET BY MOUTH DAILY Referrals Follow up/Referrals: Martine Gimenez MD [Primary Care Provider] - See instructions Activity Restrictions/Add. Instructions Additional Instructions/Restrictions: You have clinical evidence of bilateral cellulitis or soft tissue infection of your bilateral buttocks. No evidence of an abscess please take your antibiotics to completion additionally you had no evidence of any significant hemorrhoids. Return with any high fevers spreading redness or other concerns. Clinical Impressions Clinical Impression: Cellulitis of buttock Instructions Patient Instructions: DI for Urinary Tract Infection (UTI), DI for Urinary Tract Infection in Children Print Language Print Language: Togolese Discharge ED Provider: Yuly Zambrano General Adult HPI General Chief complaint: Urogenital-Male Stated complaint: hemmorhoids Time Seen by Provider: 12/21/24 09:19 Mode of Arrival: Ambulatory Source of Information: Patient Limitations: No Limitations Description of Symptoms (Recalled from ER Triage Doc. by RN): PT REPORTS HEMORRHOID PAIN FOR MONTHS, DENIES RECTAL BLEEDING. REPORTS BILATERAL TESTICLE PAIN AND SWELLING FOR 3-4 DAYS History of Present Illness HPI narrative: Patient is a 69-year-old male presenting today with buttock pain bilaterally. He denies any testicular involvement to me. States he has had some pain and swelling over the last several days. Denies any fevers or chills or any other systemic illness. No abdominal pain and changes in bowel movements etc. Related Data Home Medications ?Medication ?Instructions ?Recorded ?Confirmed atorvastatin 10 mg tablet 10 mg PO HS Cholesterol 12/02/18 12/21/24 allopurinol 100 mg tablet 100 mg PO DAILY 12/21/24 12/21/24 amlodipine 10 mg tablet 10 mg PO DAILY 12/21/24 12/21/24 empagliflozin 10 mg tablet 10 mg PO DAILY 12/21/24 12/21/24 (Jardiance) levothyroxine 137 mcg tablet 137 mcg PO DAILY 12/21/24 12/21/24 meloxicam 7.5 mg tablet 7.5 mg PO DAILY 12/21/24 12/21/24 tamsulosin 0.4 mg capsule 0.4 mg PO DAILY 12/21/24 12/21/24 Previous Rx's ?Medication ?Instructions ?Recorded cephalexin 500 mg capsule 500 mg PO QID 10 days #40 caps 12/21/24 sulfamethoxazole 800 1 tab PO BID 10 days #20 tabs 12/21/24 mg-trimethoprim 160 mg tablet (Bactrim DS) Allergies Allergy/AdvReac Type Severity Reaction Status Date / Time No Known Allergies Allergy Verified 03/31/24 13:30 [facility] Disclaimer: The information contained in this section may have been updated after the patient was seen, as this information can be updated by other users. Medical History (Updated 12/21/24 @ 10:58 by Yuly Zambrano MD) Hypertension Diabetes Gout Family History (Updated 12/21/24 @ 09:36 by Elva Ocampo RN) Other No significant family history Social History Smoking Status: Current every day smoker tobacco type: cigars second hand exposure: Yes alcohol intake: never current occupational status: retired Travel in the last 8 weeks: None household members: significant other housing: apartment caffeine: Yes Have you lived/traveled outside [place] in past 30 days?: No Contact w/someone who lives/traveled outside [place] past 30 days?: No Exposure to someone with infectious disease in past 14 days?: No Do you have a fever (greater than 100.4 F or 38 C)?: No Have you tested positive for COVID-19: No Exposed to someone with COVID-19 in past 14 days?: No Do you have a sore throat?: No Do you have a cough?: No Do you have any weakness?: No Do you have any diarrhea?: No Are you experiencing any unusual bleeding?: No Do you have any muscle aches/pain?: No Do you have any abdominal pain?: No Are you experiencing loss of taste or smell?: No Other Medical History Have you received the Flu Vaccine for this season: No Have you received the Pneumonia Vaccine: Yes ROS Obtained: Yes All systems reviewed & no additional complaints except as documented Physical Exam General General appearance: alert and in no apparent distress Respiratory Respiratory exam: Present normal lung sounds bilaterally Cardiovascular Cardiovascular exam: Present regular rate Back Exam Back 1 view image: 1. Soft tissue thickening and erythema bilaterally with no focal fluctuance 2. Soft tissue thickening and erythema bilateral with no focal fluctuance Neurological Exam Neurological exam: Present alert and oriented X3 Medical Decision Making Medical Records Screening: Per USPSTF and CDC recommendations, given the prevalence of disease in our region, it is our hospital?s policy to screen for HIV and viral Hepatitis for all patients aged 18 and over and those with ongoing risk factors. Malcolm Inquiry Pt receiving controlled substance: No Vital Signs: 12/21/24 09:07 12/21/24 09:10 12/21/24 09:11 Temperature 97.7 F Temperature Source Oral Pulse Rate 108 H 94 H Pulse Rate [Radial] 93 H Respiratory Rate 18 Blood Pressure 152/84 H 126/70 Blood Pressure [Right Arm] 152/84 H Blood Pressure Mean [Right Arm] 106 Blood Pressure Source [Right Arm] Automatic Cuff Blood Pressure Position [Right Arm] Sitting 02 Sat by Pulse Oximetry 98 98 98 Oxygen Delivery Method Room Air Room Air Room Air 12/21/24 10:00 Temperature Temperature Source Pulse Rate 82 Pulse Rate [Radial] Respiratory Rate Blood Pressure 131/61 Blood Pressure [Right Arm] Blood Pressure Mean [Right Arm] Blood Pressure Source [Right Arm] Blood Pressure Position [Right Arm] 02 Sat by Pulse Oximetry 98 Oxygen Delivery Method Room Air Lab Data Lab results reviewed: Yes I reviewed the patient's lab results. Lab Results 12/21/24 09:50: WBC 8.1, RBC 3.89 L, Hgb 12.0 L, Hct 36.5 L, MCV 93.8, MCH 30.8, MCHC 32.9, RDW 11.9, Plt Count 283, MPV 9.9, Neut % (Auto) 57.8, Lymph % (Auto) 22.8, [place] % (Auto) 9.9 H, Eos % (Auto) 8.7, Baso % (Auto) 0.2, Neut # (Auto) 4.7, Lymph # (Auto) 1.9, [place] # (Auto) 0.8, Eos # (Auto) 0.7 H, Baso # (Auto) 0.0, Sodium 138, Potassium 4.0, Chloride 104, Carbon Dioxide 30, Anion Gap 8.0, BUN 18, Creatinine 0.80, Estimated Creat Clear 95, Estimated GFR 96, Est GFR ( Amer) 116, Glucose 140 H, Calcium 8.9, Total Bilirubin 0.4, AST 39, ALT 41, Alkaline Phosphatase 105, C-Reactive Protein 10.7 H, Total Protein 7.5, Albumin 4.1, Globulin 3.4 H, Albumin/Globulin Ratio 1.2 12/21/24 09:50 12/21/24 09:50 Orders (Tests/Meds): ED MEDICATIONS Generic Name Dose Route Start Last Admin Trade Name Freq PRN Reason Stop Dose Admin Sodium Chloride 10 ml 12/21/24 10:26 12/21/24 10:28 Sodium Chloride 0.9% 10ml Syr (Rad Only) IV 01/20/25 10:25 10 ml NEEDED PRN Administration Maintain IV Site Discontinued Medications Generic Name Dose Route Start Last Admin Trade Name Freq PRN Reason Stop Dose Admin Sodium Chloride 1,000 mls @ 999 mls/hr 12/21/24 09:30 12/21/24 09:51 Sod Chlor 0.9% 1000ml Bag IV 12/21/24 10:30 999 mls/hr .Q1H1M CARMENZA Administration Iopamidol 75 ml 12/21/24 10:26 12/21/24 10:28 Iopamidol-370 (76%);100ml Bottle IV 12/21/24 10:27 75 ml ONCE ONE Administration Ketorolac Tromethamine 15 mg 12/21/24 09:25 12/21/24 09:51 Ketorolac 30mg/Ml Vial IV 12/21/24 09:26 15 mg ONCE ONE Administration ORDERS Category Date Time Status CT abdomen pelvis w con Stat Cat Scan 12/21/24 09:25 Completed CBC w/Auto Diff [Complete Blood Count Auto Diff] Stat Lab 12/21/24 09:50 Completed CMP [Comprehensive Metabolic Panel] Stat Lab 12/21/24 09:50 Completed CRP [C-Reactive Protein] Stat Lab 12/21/24 09:50 Completed HIV Combo Stat Lab 12/21/24 09:50 Received Hepatitis C Ab Qual. W/ RFX Stat Lab 12/21/24 09:50 Received Medical Decision Narrative: 69-year-old with above history and physical. The medial aspect of bilateral buttock outside of his rectal area are extremely thickened and hardened and mildly erythematous but no focal fluctuance to suggest that there is a definitive abscess. Will get a scan of this to rule out any deep space infection. No testicular swelling on exam or from historical standpoint as well. Possible cellulitis in this region from chronic friction. Systemically the patient feels well does not have any abdominal pain or other signs of systemic illness. Reassessment 1101 clinically patient remains very stable CT scan was performed which I personally interpreted and in the location of his symptoms there is some evidence of some stranding superficially consistent with cellulitis but no localized drainable fluid collection radiology read is unremarkable. Oral antibiotics have been prescribed there may be some superficial breakdown from just localized friction has been advised to apply petroleum based jelly such as Neosporin until this heals and to follow-up with primary care doctor to ensure resolution of his symptoms. Patient was discharged in stable condition. Critical Care Critical Care Time Critical Care Time: No
[2024-12-21] MEDS: KETOROLAC 30MG/ML VIAL 15 MG IV (09:51)
[2024-12-21] MEDS: 0.9 % SODIUM CHLORIDE 1000ML 1,000 ML 999 ML IV (09:51)
--- NOTE | 2024-12-21 09:54 | PC.NURSE ---
PT MEDICATED PER EMAR, URINAL PROVIDED. CALL LIGHT WITHIN REACH. NO NEEDS AT THIS TIME
[2024-12-21 10:00] VITALS: BP 131/61; PULSE 82; O2SAT 98
[2024-12-21 10:02] LABS: Basophils % 0.2 % (0.1-2.0); Eosinophils # 0.7 K/mm3 (0.0-0.4); Eosinophils % 8.7 % (0.1-12.0); Hematocrit 36.5 % (42.0-52.0); Lymphocytes # 1.9 K/mm3 (0.7-4.5); Lymphocytes % 22.8 % (10-50); Mean Corpuscular HGB Conc 32.9 g/dL (31.8-35.4); Mean Corpuscular Hemoglobin 30.8 pg (27.0-31.2); Mean Corpuscular Volume 93.8 fl (80-94); Mean Platelet Volume 9.9 fl (7.4-10.4); Monocytes # 0.8 K/mm3 (0.1-1.0); Monocytes % 9.9 % (1.7-9.3); Neutrophils # 4.7 K/mm3 (1.8-7.8); Neutrophils % 57.8 % (37.0-80.0); Platelet Count 283 K/mm3 (142-424); Red Blood Count 3.89 M/mm3 (4.60-6.20); Red Cell Distribution Width 11.9 % (11.5-17.5); White Blood Count 8.1 K/mm3 (4.8-10.8)
[2024-12-21 10:08] LABS: Albumin Level 4.1 g/dl (3.5-5.0); Chloride 104 mmol/L (98-107); Sodium 138 mmol/L (136-145)
[2024-12-21 10:11] LABS: Alanine Aminotransferase 41 U/L (12-78); Albumin/Globulin Ratio 1.2 (1.1-1.8); Alkaline Phosphatase 105 U/L (38-126); Aspartate Amino Transferase 39 U/L (17-59); Bilirubin,Total 0.4 mg/dl (0.2-1.3); Blood Urea Nitrogen 18 mg/dl (9-20); Calcium 8.9 mg/dl (8.4-10.2); Carbon Dioxide 30 mmol/L (22.0-30.0); Creatinine Clearance Estimated 95 mL/min (50-200); Estimated Glomerular Filt Rate 96 ml/min (>60); GFR (African American) 116 ML/MIN (>60); Globulin 3.4 g/dL (1.3-3.2); Glucose 140 mg/dl (74-100); Total Protein,Serum 7.5 g/dl (6.3-8.2)
[2024-12-21 10:17] LABS: C-Reactive Protein 10.7 mg/L (0-4)
--- NOTE | 2024-12-21 10:25 | PC.NURSE ---
PT TO CT
[2024-12-21] MEDS: SODIUM CHLORIDE 0.9% 10ML SYR (RAD ONLY) 10 ML IV (10:28)
[2024-12-21] MEDS: IOPAMIDOL-370 (76%);100ML BOTTLE 75 ML IV (10:28)
--- NOTE | 2024-12-21 10:40 | PC.NURSE ---
PT RETURNED FROM CT
[2024-12-21 11:01] VITALS: BP 153/64; PULSE 73; O2SAT 99
--- NOTE | 2024-12-21 11:03 | PC.NURSE ---
ROUNDED ON THE PT. THE PT VOICES THAT HE DOES NOT NEED ANYTHING AT THIS TIME. CALL LIGHT IS WITHIN REACH OF THE PT.
[2024-12-21 11:07] VITALS: BP 153/64; PULSE 74; RESP 18; TEMP 36.7; O2SAT 99
[2024-12-21 11:17] LABS: HIV Combo NEGATIVE (Negative)
[2024-12-21 11:25] LABS: Hepatitis C Ab Qual. W/ RFX NEGATIVE (Negative)
== END 2024-12-21 11:13 | disposition home or self-care (01) ==
PROVIDERS: Emergency Provider Student in an Organized Health Care Education/Training Program; PCP Family Medicine
DX: L03.317 Cellulitis of buttock (principal); K64.9 Unspecified hemorrhoids; F17.210 Nicotine dependence, cigarettes, uncomplicated
CPT/HCPCS: 74177; 80053; 85025; 86140; 86803; 87389; 96361; 96374; 99285; J1885; J7030; Q9967

== ENCOUNTER 2025-03-02 13:20 | Day surgery (SDC) | payer MEDICARE, SELFPAY ==
[2025-02-25 14:12] VITALS: BMI 30.1
[2025-03-02 13:39] VITALS: BP 132/66; PULSE 89; RESP 20; TEMP 36.2; O2SAT 99
[2025-03-02] MEDS: APRACLONIDINE 0.5% OPHTH SOLN 5ML OP (13:52)
[2025-03-02] MEDS: PHENYLEPHRINE 2.5% OPHTH SOLN 2ML OP (13:52)
[2025-03-02] MEDS: TROPICAMIDE 1% OPTH SOLN 2ML OP (13:53)
[2025-03-02] MEDS: TETRACAINE 0.5% OPTH SOL 15ML OP (13:53)
--- NOTE | 2025-03-02 14:10 | HMH.PROCNOTE ---
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 The patient has noticed that the vision has decreased from the previous good level postop. The patient reports that he/she is having trouble reading and/or driving or that glare is giving them a problem. On exam, the patient was found to have visually significant posterior capsular opacification. The treatment options, risks and benefits were explained and the patient elected to have YAG laser capsulotomy in an attempt to improve the vision. Of note, the best corrected visual acuity is in the 20/30 or worse range by refraction or glare testing. The eye was dilated and 1 drop of 0.5% Iopidine applied. YAG laser energy was applied to the posterior capsular bag with good formation of an opening and no complications were noted. The patient will be seen back for follow up in 2 weeks 49 pulses 170 mj
== END 2025-03-02 14:05 | disposition home or self-care (01) ==
PROVIDERS: PCP Family Medicine; Visit Provider Ophthalmology
PROC: (CPT 66821; principal; 2025-03-02 14:30)
DX: H26.491 Other secondary cataract, right eye (principal)
CPT/HCPCS: 66821

== ENCOUNTER 2025-08-27 10:41 | Outpatient (CLI) | payer MEDICARE, SELFPAY ==
--- NOTE | 2025-08-27 10:45 | US_ITS ---
FINAL REPORT TECHNIQUE: Real-time grayscale and color ultrasound of the thyroid was performed. CLINICAL HISTORY: THYROID NODULE COMPARISON: none FINDINGS: The thyroid gland is atrophic measuring 23 x 14 x 11 mm on the right and 37 x 17 x 15 mm on the left. The isthmus measures 2 mm. The thyroid gland is diffusely heterogeneous which may be seen with chronic thyroiditis.. Nodules: Mildly lobulated hypoechoic mass in the left lobe consistent with TR 4 measuring up to 2.4 cm. IMPRESSION: Dominant mass left lobe of the thyroid, TR 4. Atrophic thyroid, probably thyroiditis. Ultrasound directed FNA recommended per TI-RADS criteria. Reviewed, Interpreted and Dictated by Dillon Hebert MD Transcribed by Cindy Sanchez Authenticated and . [facility]
--- OUTSIDE RECORDS SUMMARY | 2025-08-27 10:46 | XMS_ITS | Encounter Summary ---
Author Organization [facility] Address [address] [place] [address] Care Team Providers Care Channeling Machine Operator Name Role Phone Gualberto Rosario MD Primary Care Provider [phone] Reason for Visit * Reason Comments Med Refill Encounter Details Date Type Department Care Team (Late st Contact Info) Description 05/15/2021 Refill [facility] [address] [place] [address] Werner Zambrano MD [address] [address] Social History Tobacco Use Types Packs/Day Years Used Date Smoking Tobacco: Never Comments:Cigar smoker Alcohol Use Standard Drinks/Week Comments No 0 (1 standard drink = 0.6 oz pur e alcohol) Sex and Gender Information Value Date Recorded Sex Assigned at Not on file Legal Sex Male 7:09 PM EDT Gender Identity Not on file Sexual Orientation Not on file documented as of this encounter Miscellaneous Notes * Telephone Encounter - Jazz Anguiano - 05/17/2021 3:21 PM EDT Approving, but needs appt for additional refills. documented in this encounter Plan of Treatment Not on file documented as of this encounter Visit Diagnoses Not on filedocumented in this encounter Care Teams Channeling Machine Operator Relationship Specialty Start Date End Date Gualberto Rosario MD [address] [place] [address] PCP - General 03/24/21 documented as of this encounter
--- OUTSIDE RECORDS SUMMARY | 2025-08-27 10:46 | XMS_ITS | Encounter Summary ---
Author Organization [facility] Address [address] [place] [address] Care Team Providers Care Manager Discovery Name Role Phone Gualberto Rosario MD Primary Care Provider [phone] Reason for Visit * Reason Comments Med Refill Encounter Details Date Type Department Care Team (Late st Contact Info) Description 08/29/2021 Refill [facility] [address] [place] [address] Werner Zambrano MD [address] [address] Social History Tobacco Use Types [...] encounter Miscellaneous Notes * Telephone Encounter - Yennifer Cote - 08/29/2021 11:43 AM EDT Approving, but needs appt for additional refills. documented in this encounter Plan of Treatment Not on file documented as of this encounter Visit Diagnoses Not on filedocumented in this encounter Care Teams Manager Discovery Relationship Specialty Start Date End Date Gualberto Rosario MD [address] [place] [address] PCP - General 03/24/21 documented as of this encounter
--- OUTSIDE RECORDS SUMMARY | 2025-08-27 10:46 | XMS_ITS | Clinical Summary ---
Author Organization [facility] Address [address] [place] [address] Care Team Providers Care Manager Of Exhibitions And Collections Name Role Phone Gualberto Rosario MD Primary Care Provider [phone] Allergies No known active allergies Medications allopurinol (Zyloprim) 100 MG tablet Take 2 tablets (200 mg) by mouth 1 (one) time each day. 2 Active amLODIPine (Norvasc) 10 MG tablet Take 1 tablet daily 9 Active atorvastatin (Lipitor) 10 MG tablet Take 1 tablet (10 mg) by mouth 1 (one) time each day. 2 Active Jardiance 10 MG Take 1 tablet (10 mg) by mouth 1 (one) time each day. 2 Active Kerendia 10 MG tablet Take 1 tablet by mouth 1 (one) time each day. 2 Active Lantus SoloStar 100 UNIT/ML injection pen INJECT 22 UNITS SUBCUTANEOUSLY ONCE DAILY AT BEDTIME 2 Active lisinopril 40 MG tablet Take 1 tablet daily 9 Active omeprazole (PriLOSEC) [address] capsule TAKE 1 CAPSULE BY MOUTH EVERY DAY 30 MINUTES BEFORE BREAKFAST 2 Active Netarsudil-Lat anoprost (Rocklatan) 0.02-0.005 % solution Administer into affected eye(s). Active OneTouch Ultra test strip USE TO TEST ONCE DAILY 2 Active Victoza 18 MG/3ML inj. pen ADMINISTER 1.2 MLS UNDER THE SKIN EVERY MORNING 2 Active BD Pen Needle Kaela 2nd Gen 32G X 4 MM misc 1 (one) time each day. as directed 3 Active benzonatate (Tessalon) 100 MG capsule 2 Active latanoprost (Xalatan) 0.005 % ophthalmic solution INSTILL 1 DROP IN AFFECTED EYE(S) EVERY NIGHT 2.5 mL 11 4 Active dorzolamide-ti molol (Cosopt) 2-0.5 % ophthalmic solution Administer 1 drop into both eyes 2 (two) times a day. 10 mL 11 5 Active Active Problems Problem Noted Date Diagnosed Date Primary open angle glaucoma (POAG) of both eyes, severe stage 02/19/2022 Secondary cataract of both eyes 02/19/2022 Type 2 diabetes mellitus without complication Family History Medical History Relation Name Comments Conversions - Other Brother CAD (cor onary artery disease), [place] coronary artery Heart disease Brother Heart disease Father Stroke Father Diabetes Sister Hypertension Sister Relation Name Status Comments Brother Father Mother's Sister Alive Sister Social History Tobacco Use Types Packs/Day Years Used Date Smoking Tobacco: Every Day Cigars Passive Smoke Exposure: Never Smokeless Tobacco: Never Tobacco Cessation:Ready to Q uit: Not Asked; Counseling Given: Not Answered Comments:Cigar smoker Alcohol Use Standard Drinks/Week Comments No 0 (1 standard drink = 0.6 oz pur e alcohol) Sex and Gender Information Value Date Recorded Sex Assigned at Not on file Legal Sex Male 7:09 PM EDT Gender Identity Not on file Sexual Orientation Not on file Last Filed Vital Signs Vital Sign Reading Time Taken Comments Blood Pressure 111/69 09/03/2019 11:07 AM EDT Pulse 80 09/03/2019 11:07 AM EDT Temperature 36.5 C (97.7 F) 09/03/2019 11:07 AM EDT Respiratory Rate - - Oxygen Saturation - - Inhaled Oxygen Concentration - - Weight 103 kg (227 lb 15.3 oz) 09/03/2019 11:07 AM EDT Height 177.8 cm (5' 10 ) 09/03/2019 11:07 AM EDT Body Mass Index 32.71 09/03/2019 11:07 AM EDT Plan of Treatment Health Maintenance Due Date Last Done Comments [facility]-Depression Screening 1955 [facility]-Hepatitis C Screening 1955 [facility]-Medicare Annual Wellness (AWV) 1955 [facility]-/Child/Adol SDOH Screenings 1955 Diabetes: Dental Exam 02/12/1966 [facility]- SDOH Screenings 02/12/1974 [facility]-Adult SDOH Screenings 02/12/1974 [facility]-DTaP,Tdap,and Td Vaccine s (1 - Tdap) 01/15/1997 01/14/1997 CT Colonography 02/12/2001 Colonoscopy 02/12/2001 FIT-DNA 02/12/2001 FIT 02/12/2001 FOBT 02/12/2001 Sigmoidoscopy 02/12/2001 [facility]-Colorectal Cancer Screening 02/12/2001 [facility]-RSV Vaccine: 60+ Years o r (1 - Risk 60-74 years 1-dose series) 2016 [facility]-Diabetes: Hemoglobin A1C 06/02/2019, 12/02/2018 [facility]-Zoster Vaccines (2 of 2) 04/28/2024 03/03/2024 [id number] Vaccine (4 - 2024- season) 2025 03/19/2022, 09/27/2021, 01/18/2021 [facility]-Influenza Vaccine (#1) 07/12/202508/06, 08/29/2016, 08/14/2014 [facility]-Pneumococcal Vaccine: 50 + Years Completed 02/28/2023 HPV Vaccines Aged Out No longer eligi ble based on patient's age to complete this topic [facility]-HIB Vaccines Aged Out No longer e ligible based on patient's age to complete this topic [facility]-Hepatitis A Vaccines Aged Out No longer eligible based on patient's age to complete this topic [facility]-IPV Vaccines Aged Out No longer e ligible based on patient's age to complete this topic [facility]-Rotavirus Vaccines Aged Out No lo nger eligible based on patient's age to complete this topic Procedures Procedure Name Priority Date/Time Associated Diagnosis Comments HEMOGLOBIN A1C Routine 12/03/2018 4:00 AM EST from Last 3 Months or Most Recently Relevant to Health Maintenance Results * (ABNORMAL) Hemoglobin A1c (12/03/2018 4:00 AM EST) Hemoglobin A1c 8.8(H) 4.7 - 6.0 % SUNQUEST Comment: Glycohemoglobin Reference Range, 0 years and up: 4.7 to 6.0% . HA1C Interpretive Data: Diagnosis of Diabetes: Diabetic > or = 6.5% Pre-diabetic 5.7 to 6.4% Non-diabetic < or = 5.6% . Glycemic Targets for Type I and Type II Diabetics: Non- Adults <7.0% Adults <6.0% Children and Adolescents <7.5% . Source: [place] [employer]. Standards of medical care in diabetes, 2017. Diabetes Care.2017:40 (suppl 1):S1-S135. . HbA1c assay performed by an ion-exchange chromatography method that is certified traceable to the DCCT. 12/03/2018 4:00 AM EST 12/03/2018 3:18 AM EST Elizabeth Jeronimo APRN LAB BLOOD ORDERABLES Final Res ult SUNQUEST from Last 3 Months or Most Recently Relevant to Health Maintenance Insurance [facility] MEDICARE Care Teams Manager Of Exhibitions And Collections Relationship Specialty Start Date End Date Gualberto Rosario MD [address] [place] [address] PCP - General 03/24/21
--- OUTSIDE RECORDS SUMMARY | 2025-08-27 10:46 | XMS_ITS | Encounter Summary ---
Author Organization [facility] Address [address] [place] [address] Care Team Providers Care Alcohol Rubber Name Role Phone Gualberto Rosario MD Primary Care Provider [phone] Reason for Visit * Reason Comments Med Refill Encounter Details Date Type Department Care Team (Late st Contact Info) Description 10/16/2021 Refill [facility] [address] [place] [address] Werenr Zambrano MD [address] [address] Social History Tobacco Use Types [...] encounter Miscellaneous Notes * Telephone Encounter - Sapna Aggarwal - 10/16/2021 3:47 PM EST Patient not seen in almost 2 years documented in this encounter Plan of Treatment Not on file documented as of this encounter Visit Diagnoses Not on filedocumented in this encounter Care Teams Alcohol Rubber Relationship Specialty Start Date End Date Gualberto Rosario MD [address] [place] [address] PCP - General 03/24/21 documented as of this encounter
== END 2025-08-27 23:59 | disposition home or self-care (01) ==
LOC: RAD 10:42
PROVIDERS: PCP Family Medicine; Visit Provider Family Medicine
DX: E04.1 Nontoxic single thyroid nodule (principal); E03.4 Atrophy of thyroid (acquired)
CPT/HCPCS: 76536

== ENCOUNTER 2025-10-15 09:35 | Outpatient (CLI) | payer MEDICARE, MEDICAID, SELFPAY ==
--- OUTSIDE RECORDS SUMMARY | 2025-10-15 09:37 | XMS_ITS | Encounter Summary ---
Author Organization [facility] Address [address] [place] [address] Care Team Providers Care Ship Carpenter Name Role Phone Gualberto Rosario MD Primary Care Provider [phone] Reason for Visit * Reason Comments Med Refill Encounter Details Date Type Department Care Team (Late st Contact Info) Description 10/16/2021 Refill [facility] [address] [place] [address] Werner Zambrano MD [address] [address] Social History Tobacco Use Types [...] on filedocumented in this encounter Care Teams Ship Carpenter Relationship Specialty Start Date End Date Gualberto Rosario MD [address] [place] [address] PCP - General 03/24/21 documented as of this encounter
--- OUTSIDE RECORDS SUMMARY | 2025-10-15 09:37 | XMS_ITS | Clinical Summary ---
Author Organization [facility] Address [address] [place] [address] Care Team Providers Care Statue Carver Name Role Phone Gualberto Rosario MD Primary Care Provider [phone] Allergies No known active allergies Medications allopurinol [...] Other Brother CAD (cor onary artery disease), [place] coronary artery Heart disease Brother Heart disease [...] [facility]-Zoster Vaccines (2 of 2) 04/28/2024 03/03/2024 [id number] Vaccine (4 - 2024- season) 2025 03/19/2022, [...] <6.0% Children and Adolescents <7.5% . Source: [place] [employer]. Standards of medical care in diabetes, 2017. Diabetes Care.2017:40 (suppl 1):S1-S135. . HbA1c assay performed by an ion-exchange chromatography method that is certified traceable to the DCCT. 12/03/2018 4:00 AM EST 12/03/2018 3:18 AM EST Elizabeth Jeronimo APRN LAB BLOOD ORDERABLES Final Res ult SUNQUEST from Last 3 Months or Most Recently Relevant to Health Maintenance Insurance [facility] MEDICARE Care Teams Statue Carver Relationship Specialty Start Date End Date Gualberto Rosario MD [address] [place] [address] PCP - General 03/24/21
--- OUTSIDE RECORDS SUMMARY | 2025-10-15 09:37 | XMS_ITS | Encounter Summary ---
Author Organization [facility] Address [address] [place] [address] Care Team Providers Care Lamp Replacer Name Role Phone Gualberto Rosario MD Primary Care Provider [phone] Reason for Visit * Reason Comments Med Refill Encounter Details Date Type Department Care Team (Late st Contact Info) Description 08/29/2021 Refill [facility] [address] [place] [address] Werner Zambrano MD [address] [address] Social History Tobacco Use Types [...] on filedocumented in this encounter Care Teams Lamp Replacer Relationship Specialty Start Date End Date Gualberto Rosario MD [address] [place] [address] PCP - General 03/24/21 documented as of this encounter
--- OUTSIDE RECORDS SUMMARY | 2025-10-15 09:37 | XMS_ITS | Encounter Summary ---
Author Organization [facility] Address [address] [place] [address] Care Team Providers Care Yield Clerk Name Role Phone Gualberto Rosario MD Primary Care Provider [phone] Reason for Visit * Reason Comments Med Refill Encounter Details Date Type Department Care Team (Late st Contact Info) Description 05/15/2021 Refill [facility] [address] [place] [address] Werner Zambrano MD [address] [address] Social History Tobacco Use Types [...] on filedocumented in this encounter Care Teams Yield Clerk Relationship Specialty Start Date End Date Gualberto Rosario MD [address] [place] [address] PCP - General 03/24/21 documented as of this encounter
--- NOTE | 2025-10-15 10:00 | US_ITS ---
FINAL REPORT CLINICAL HISTORY: LT THYROID FNA-- MIKI VICTORIA FINDINGS: Ultrasound guided thyroid biopsy. HISTORY: Thyroid nodule. PROCEDURE: After informed consent was obtained and a time-out was performed, the patient was prepped and draped in usual sterile fashion over the anterior neck. Utilizing local anesthesia and sterile technique with a 25-gauge needle, access to the lesion was obtained. Access was madee extremely difficult secondary to the depthh of the lesion. The lesion was poorly visualized and indistinct. Four passes were made. The patient received no conscious sedation. The patient tolerated procedure well and left the department in good condition. IMPRESSION: Technicallyvery difficult biopsy secondary to poor visualization of the thyroid nodule and the depth of the nodule. There was no complication. Reviewed, Interpreted and Dictated by Pauly Cabrera MD Transcribed by ESME Romero Authenticated and [facility]
== END 2025-10-15 23:59 | disposition home or self-care (01) ==
LOC: RAD 09:35
PROVIDERS: PCP Family Medicine; Visit Provider Student in an Organized Health Care Education/Training Program
DX: E04.1 Nontoxic single thyroid nodule (principal); E03.9 Hypothyroidism, unspecified
CPT/HCPCS: 10005